=== PATIENT | female | born 1950 | race Caucasian/White ===

== ENCOUNTER → 2016-06-24 | Outpatient (CLI) | payer OTHER ==
[~2016-06-24] MED LIST: ASPEC325 PO; B-COCAP2 PO; CLTP PO; CNC36 PO; CYM60 PO; LRTUNK; OXYSRUNK
--- NOTE | 2016-06-24 14:12 | DIAGNOSTIC IMAGING REPORT ---
MRI OF THE BRAIN WITHOUT CONTRAST CLINICAL HISTORY: Migraine headaches without aura, memory changes, difficulty focusing eyes. COMPARISON STUDY: None. FINDINGS: Sagittal T1, axial diffusion, proton density and T2 weighted axial, coronal FLAIR, and axial T1-weighted images were acquired. No intra or extra-axial mass lesions are visualized Axial diffusion-weighted images reveal no evidence of acute or subacute infarction. There is no evidence of ventricular dilatation. Proton density T2-weighted and FLAIR images reveal a few scattered foci of increased T2 signal within the white matter, likely on a small vessel basis. There are no abnormal flow voids. IMPRESSION: 1. No evidence of acute or subacute infarction 2. No evidence of intracranial mass 3. Minor foci of increased T2 and FLAIR signal within the white matter, likely on a small vessel basis. Electronically signed by: Willie Springer M.D. 06/24/2016 2:11 PM Dictated Date/Time: 06/24/2016 2:08 PM
== END | disposition home or self-care (01) ==
LOC: C.MRI 13:13
PROVIDERS: ATTEND Psychiatry & Neurology Neurology
DX: G43.009 Migraine without aura, not intractable, without status migrainosus (principal); R41.3 Other amnesia; R41.89 Other symptoms and signs involving cognitive functions and awareness

== ENCOUNTER → 2016-11-04 | Outpatient (CLI) | payer OTHER ==
[~2016-11-04] VITALS: Ht 160 cm; Wt 78.5 kg
[2016-11-04 11:32] VITALS: BP 118/74; PULSE 73; Ht 160 cm; Wt 78.5 kg
== END | disposition home or self-care (01) ==
LOC: C.NEUR 10:00
PROVIDERS: ATTEND Internal Medicine Pulmonary Disease
DX: G47.33 Obstructive sleep apnea (adult) (pediatric) (principal); F90.1 Attention-deficit hyperactivity disorder, predominantly hyperactive type; R26.89 Other abnormalities of gait and mobility; R41.3 Other amnesia; F41.3 Other mixed anxiety disorders; Z79.899 Other long term (current) drug therapy

== ENCOUNTER → 2017-03-02 | Outpatient (CLI) | payer OTHER | END | disposition home or self-care (01) | LOC: C.LAB1850 13:49 | PROVIDERS: ATTEND Internal Medicine Pulmonary Disease | DX: G25.81 Restless legs syndrome (principal) ==

== ENCOUNTER 2021-04-08 08:09 | Inpatient (IN) ==
--- NOTE | 2021-02-18 11:37 | PAT Medication Instructions ---
Medication Instructions Date of Service February 18, 2021 Home Medications aspirin 81 mg tablet,delayed release 81 mg PO HS atorvastatin 10 mg tablet 10 mg PO HS calcium carbonate 500 mg-vitamin D3 10 mcg (400 unit) tablet 1 tab PO BID cholecalciferol (vitamin D3) 25 mcg (1,000 unit) capsule 1,000 units PO QAM duloxetine 30 mg capsule,delayed release 30 mg PO HS methylphenidate HCl 54 mg tablet,extended release 24 hr 54 mg PO QAM propranolol 60 mg capsule,24 hr,extended release 60 mg PO QAM vitamin B complex (Super B-50 Complex) 1 cap PO QAM alendronate 70 mg tablet (Fosamax) 70 mg PO WK gabapentin 100 mg capsule 400 mg PO BID lactobacillus combination no.4 3 billion cell capsule (Probiotic) 3,000 mmu cells PO QAM multivitamin 1 tab PO QAM Continue as directed alendronate 70 mg tablet (Fosamax) 70 mg PO WK (do not take morning of surgery) ASK your prescriber and surgeon aspirin 81 mg tablet,delayed release 81 mg PO HS DO NOT take the morning of surgery calcium carbonate 500 mg-vitamin D3 10 mcg (400 unit) tablet 1 tab PO BID cholecalciferol (vitamin D3) 25 mcg (1,000 unit) capsule 1,000 units PO QAM methylphenidate HCl 54 mg tablet,extended release 24 hr 54 mg PO QAM vitamin B complex (Super B-50 Complex) 1 cap PO QAM lactobacillus combination no.4 3 billion cell capsule (Probiotic) 3,000 mmu cells PO QAM multivitamin 1 tab PO QAM Take morning of surgery With a small sip of water, OTHERWISE NOTHING TO EAT OR DRINK AFTER MIDNIGHT: propranolol 60 mg capsule,24 hr,extended release 60 mg PO QAM gabapentin 100 mg capsule 400 mg PO BID Take evening before surgery atorvastatin 10 mg tablet 10 mg PO HS calcium carbonate 500 mg-vitamin D3 10 mcg (400 unit) tablet 1 tab PO BID duloxetine 30 mg capsule,delayed release 30 mg PO HS gabapentin 100 mg capsule 400 mg PO BID Other Notes If you have any questions please call us at [phone] or [phone] or [phone] or [phone]
--- NOTE | 2021-02-19 11:26 | Anesthesiology Consultation ---
Date of Service February 19, 2021 Assessment & Plan (1) Encounter for pre-operative examination: - cardiology clearance with [facility] 02/24/2021. - cardiology office visit 06/25/2020: "...chronic symptoms of atypical chest discomfort. She was last seen by us in 2018. She had a stress echocardiogram which did not reveal significant ischemia. A coronary CT angiogram had revealed coronary calcium score of 14 and less than 25% stenosis of ostial LAD. She is being treated with statin therapy...occasional episodes of retrosternal chest tightness which is transient and may occur even at rest. This chest tightness is not different from the past. She also has occasional shortness of breath with moderate exertion which is stable. She denies palpitation, dizziness or syncope...EKG is within normal limits. Chest discomfort is most likely noncardiac in nature. At this point I have not recommended any further evaluation as her symptoms are chronic and unchanged..." - COVID screening: Per assessment on 02/19/2021: Travel screen negative, no known COVID-19 positive contacts or current COVID-19 related symptoms in past 2 weeks. Patient vaccinated. Surgeon arranging preop COVID testing, scheduled 03/03/2021 [place]. Awaiting results. Chart Review Chart Review: Acceptable Risk for Surgery (pending cardiology clearance) and Patient seen in Pre Admission Testing Teaching & Discussion Pre-Anesthesia Teaching/Discussion Notes: Instructed NPO after midnight before surgery, except medications with 15 cc of water. Medication instructions provided according to the PAT guidelines. History Surgery Operation Date: 03/05/21 12:25 Proposed Procedures p L4-S1 Decompression Fusion, Spinal Cord Monitoring - Oskar Plummer DO Height/Weight Height: 5 ft 3 in Weight: 82.1 kg Allergies Allergy/AdvReac Type Severity Reaction Status Date / Time grass pollen-perennial rye, Allergy Mild "SNEEZING Verified 02/17/21 15:12 standar AND RUNNY NOSE" Dust Allergy Mild "SNEEZING" Uncoded 02/17/21 15:12 Medications Home Medications Medication Instructions Recorded Confirmed Last Taken aspirin 81 mg tablet,delayed 81 mg PO HS tab 10/25/18 02/17/21 11/05/19 release atorvastatin 10 mg tablet 10 mg PO HS tab 10/25/18 02/17/21 11/05/19 calcium carbonate 500 mg-vitamin 1 tab PO BID tab 10/25/18 02/17/21 11/05/19 D3 10 mcg (400 unit) tablet cholecalciferol (vitamin D3) 25 1,000 units PO QAM 10/25/18 02/17/21 11/05/19 mcg (1,000 unit) capsule duloxetine 30 mg capsule,delayed 30 mg PO HS cap 10/25/18 02/17/21 11/05/19 release methylphenidate HCl 54 mg 54 mg PO QAM tab 10/25/18 02/17/21 11/05/19 tablet,extended release 24 hr propranolol 60 mg capsule,24 60 mg PO QAM #30 cap 10/25/18 02/17/21 11/05/19 hr,extended release vitamin B complex (Super B-50 1 cap PO QAM 10/25/18 02/17/21 11/05/19 Complex) alendronate 70 mg tablet (Fosamax) 70 mg PO WK 10/15/19 02/17/21 10/14/19 gabapentin 100 mg capsule 400 mg PO BID cap 01/09/21 02/17/21 Unknown lactobacillus combination no.4 3 3,000 mmu cells PO QAM 02/17/21 02/17/21 Unknown billion cell capsule (Probiotic) multivitamin 1 tab PO QAM 02/17/21 02/17/21 Unknown Past Medical History Medical History (Updated 02/19/21 @ 14:34 by Jazmyne Rdz PA-C) ADHD Balance problems chronic, gait instability d/t chronic left leg numbness per pt, denies falls Chronic back pain Chronic headaches reason for propranolol Coronary artery disease nonobstructive per cardio 06/25/2020 note Depression controlled, stable per pt Hyperlipidemia Osteoporosis Sleep apnea cpap-compliant Patient denies h/o stroke, seizures, heart attack, heart failure, DM, HTN, blood clots or blood transfusions. Exercise / Class Metabolic Activity II 4-5 Yardwork/Stairs/Walk up hill (SOB with activities-chronic per pt and [facility] cardio records; denies chest discomfort) Past Family History Family History Grandfather (Paternal) Cancer of bone Mother Heart failure Aunt Cancer Father Myocardial infarction Brother Throat cancer Other No family history of adverse response to anesthesia Past Surgical History Surgical History History of appendectomy History of cataract surgery History of colonoscopy History of esophagogastroduodenoscopy (EGD) History of partial knee replacement left History of sinus surgery History of tonsillectomy History of tooth extraction S/P epidural steroid injection Past Anesthesia History No Hx of Anesthesia Complications and No Family Hx of Anesthesia Complications History of PONV No Hx of PONV and No Hx of Motion Sickness Social History Smoking Status: Never smoker Do You Dip or Chew Tobacco: No Hx Alcohol Use: Yes Alcohol type: other alcohol intake frequency: holidays/special occasions only Hx Substance Use: No substance use type: does not use Review of Systems Patient denies chest pain, shortness of breath, dyspnea on exertion, reflux, fever, chills, cough, wheezing, or palpitations. Physical Exam Vital Signs Vitals BP 118/72 P 69 TEMP 98.8 SP02 94% on RA RESP 17 Physical Full cervical extension range of motion without pain Full TMJ range of motion TMD 3.5 finger breaths Mallampati Score 3 Dentition: intact, several missing teeth left lower side, bridge front upper teeth; denies missing, loose or chipped teeth, caps/crowns or implants Lungs: normal respiratory effort. Clear throughout to auscultation, no ad ventitious breath sounds Cardiac: regular rate and rhythm, no murmurs noted Carotid arteries: negative bruit bilat Extremities: trace pitting edema distal lower extremities (nontender, nonerythematous, normal temperature) chronic per pt without change or worsening Lab Results Anesthesia Preop Results Results Anesthesia Widget: WBC 6.65 K/uL (4.8-10.8) 02/19/21 Hgb 12.9 g/dL (12.0-16.0) 02/19/21 Hct 39.8 % (37-47) 02/19/21 Plt 300 K/uL (130-400) 02/19/21 Na 141 mmol/L (136-145) 02/19/21 K 4.7 mmol/L (3.5-5.1) 02/19/21 Cl 106 mmol/L (98-107) 02/19/21 CO2 30 mmol/L (21-32) 02/19/21 BUN 13 mg/dl (7-18) 02/19/21 Creat 0.78 mg/dl (0.6-1.2) 02/19/21 Glucose Level 83 mg/dl (70-99) 02/19/21 PT 9.9 Seconds (9.0-12.0) 02/19/21 PTT 26.1 Seconds (21.0-31.0) 02/19/21 INR 1.0 (0.9-1.1) 02/19/21 Urine Color Dark Yellow 02/19/21 Urine Appearance Clear (Clear) 02/19/21 Urine pH 8.5 (4.5-7.5) H 02/19/21 Urine Specific [place] 1.019 (1.000-1.030) 02/19/21 Urine Protein Negative (Negative) 02/19/21 Urine Glucose (UA) Negative (Negative) 02/19/21 Urine Ketones Negative (Negative) 02/19/21 Urine Blood Negative (Negative) 02/19/21 Urine Nitrite Negative (Negative) 02/19/21 Urine Bilirubin Negative (Negative) 02/19/21 Urine Urobilinogen Negative (Negative) 02/19/21 Urine Leukocyte Esterase Trace (Negative) H 02/19/21 Urine WBC (Auto) 1-5 /hpf (0-5) 02/19/21 Urine RBC (Auto) 0-4 /hpf (0-4) 02/19/21 Urine Hyaline Casts (Auto) 0 /lpf (0-5) 02/19/21 Urine Epithelial Cells (Auto) >30 /lpf (0-5) H 02/19/21 Urine Bacteria (Auto) 1+ (Negative) H 02/19/21 Blood Type O Positive 02/19/21 Antibody Screen NEGATIVE 02/19/21 Lab Comments: Surgeon's office made aware of abnormal UA. Testing Electrocardiogram Date: 06/25/20 Normal sinus rhythm, rate 70 bpm. Chest X-Ray Date: 02/19/21 FINDINGS: Frontal and lateral radiographs of the chest demonstrate the cardiomediastinal silhouette to be within normal limits. The lungs are clear of alveolar opacities. There is no evidence for effusion bilaterally. There is no evidence for vascular congestion. There is no acute osseous pathology. IMPRESSION: No acute cardiopulmonary disease. Stress Test Date: 08/07/17 Exercise Negative for ischemia MPHR 84% EF 66% Normal left ventricular wall motion Mild mitral regurgitation 7 METS per f/u cardiology office note
[~2021-04-08 08:09] MED LIST changes: +ACETAMINOPHEN 500 MG TAB PO SCH; -ASPEC325 PO; -B-COCAP2 PO; -CLTP PO; -CNC36 PO; -CYM60 PO; +CeleBREX 200 MG CAP PO SCH; +GABAPENTIN 300 MG CAP PO SCH; +LR 15ML/HR IV SCH; -LRTUNK; -OXYSRUNK; +ceFAZolin 2000MG 2,000 MG/15 ML SYR IV SCH
[2021-04-08] MEDS ORDERED: fentaNYL citrate 100 MCG/2 ML VIAL IV PRN (08:32)
[2021-04-08] MEDS ORDERED: ePHEDrine sulfate 50 MG/ML AMP IV PRN (08:32)
[2021-04-08] MEDS ORDERED: HYDROmorphone INJ 1 MG/ML SYRINGE IV PRN (08:32)
[2021-04-08] MEDS ORDERED: ATROPINE SULFATE 0.1 MG/ML 10ML SYR IV PRN (08:32)
[2021-04-08] MEDS ORDERED: ONDANSETRON INJ 2 MG/ML 2 ML VIAL IV PRN (08:32)
[2021-04-08] MEDS ORDERED: fentaNYL citrate 100 MCG/2 ML VIAL ONE (08:43)
--- NOTE | 2021-04-08 09:58 | History & Physical Report ---
Date of Service April 08, 2021 Assessment & Plan (1) Neurogenic claudication due to lumbar spinal stenosis: Plan: L4-S1 decompression fusion History of Present Illness Chief Complaint: Back and leg pain Primary Care Provider: Francis Alejandro This is a 71-year-old female who presents with chronic persistent back and leg pain. Failing extensive course of nonoperative care is here for surgical invention. Allergies Allergy/AdvReac Type Severity Reaction Status Date / Time grass pollen-perennial rye, Allergy Mild "SNEEZING Verified 04/08/21 08:36 standar AND RUNNY NOSE" Home Medications Medication Instructions Recorded Confirmed Type aspirin 81 mg tablet,delayed 81 mg PO HS tab 10/25/18 04/08/21 History release atorvastatin 10 mg tablet 10 mg PO HS tab 10/25/18 04/08/21 History calcium carbonate 500 mg-vitamin 1 tab PO BID tab 10/25/18 04/08/21 History D3 10 mcg (400 unit) tablet cholecalciferol (vitamin D3) 25 1,000 units PO QAM 10/25/18 04/08/21 History mcg (1,000 unit) capsule duloxetine 30 mg capsule,delayed 30 mg PO HS cap 10/25/18 04/08/21 History release methylphenidate HCl 54 mg 54 mg PO QAM tab 10/25/18 04/08/21 History tablet,extended release 24 hr propranolol 60 mg capsule,24 60 mg PO QAM #30 cap 10/25/18 04/08/21 History hr,extended release vitamin B complex (Super B-50 1 cap PO QAM 10/25/18 04/08/21 History Complex) alendronate 70 mg tablet (Fosamax) 70 mg PO WK 10/15/19 04/08/21 History gabapentin 100 mg capsule 400 mg PO BID cap 01/09/21 04/08/21 History lactobacillus combination no.4 3 3,000 mmu cells PO QAM 02/17/21 04/08/21 History billion cell capsule (Probiotic) multivitamin 1 tab PO QAM 02/17/21 04/08/21 History Past Med/Surg History Medical History (Updated 04/08/21 @ 09:58 by Oskar Plummer DO) ADHD Balance problems chronic, gait instability d/t chronic left leg numbness per pt, denies falls Chronic back pain Chronic headaches reason for propranolol Coronary artery disease nonobstructive per cardio 06/25/2020 note Depression controlled, stable per pt Hyperlipidemia Osteoporosis Sleep apnea cpap-compliant Surgical History History of appendectomy History of cataract surgery History of colonoscopy History of esophagogastroduodenoscopy (EGD) History of partial knee replacement left History of sinus surgery History of tonsillectomy History of tooth extraction S/P epidural steroid injection Family History Grandfather (Paternal) Cancer of bone Mother Heart failure Aunt Cancer Father Myocardial infarction Brother Throat cancer Other No family history of adverse response to anesthesia Social History Smoking Status: Never smoker Second Hand Exposure: No; Do You Dip or Chew Tobacco: No; Hx Alcohol Use: Yes Alcohol type: other Hx Substance Use: No Preferred Language: Slovak Communication Ability: Effective Cdl B Driver Required: No Beliefs That Will Affect Care: None Current Living Situation: Spouse Feels Safe at Home: Yes Safety Concerns: Feels Safe At This Time Assistive Devices: CPAP and Glasses Assistive Devices Comment: readers Physical Exam Physical Exam: Patient is alert and oriented Heart regular rhythm Lungs clear Results & Data ([facility]) Vital Signs (Past 12 Hours) Vital Signs Temp Pulse Resp BP Pulse Ox 04/08/21 08:30 36.7 C 70 18 133/58 L 99
--- NOTE | 2021-04-08 09:58 | History & Physical Bridge Note ---
Date of Service April 08, 2021 History & Physical Bridge Note I have examined the patient, reviewed the History & Physical and in the interval since the performance of the History & Physical I have noted the following changes of clinical significance: no changes noted
[2021-04-08] MEDS ORDERED: ceFAZolin 330 MG/ML 1 GM VIAL ONE (10:13)
[2021-04-08] MEDS ORDERED: BUPIVACAINE/EPINEPHRINE 0.25% 1:200,000 30 ML VIAL ONE (10:14)
[2021-04-08] MEDS ORDERED: MIDAZOLAM HCL 1 MG/ML 2ML VIAL ONE (10:15)
[2021-04-08] MEDS ORDERED: ONDANSETRON INJ 2 MG/ML 2 ML VIAL ONE (11:19)
[2021-04-08] MEDS ORDERED: PROPOFOL IV EMULSION 10 MG/ML 20 ML VIAL IV ONE (11:19)
[2021-04-08] MEDS ORDERED: LIDOCAINE 2% 2 ML VIAL/AMP(20MG/ML) INFIL ONE (11:19)
[2021-04-08] MEDS ORDERED: DEXAMETHASONE SOD INJ 4 MG/ML VIAL ONE (11:19)
[2021-04-08] MEDS ORDERED: HYDROmorphone INJ 2 MG/ML SYR/VIAL ONE (11:20)
[2021-04-08] MEDS ORDERED: FLOSEAL HEMOSTATIC MATRIX 10ML TOP ONE (11:26)
[2021-04-08] MEDS ORDERED: NEOSTIGMINE METHYLSULFATE 1 MG/ML 10ML VIAL ONE (11:35)
[2021-04-08] MEDS ORDERED: PHENYLEPHRINE HCL 10 MG/ML VIAL ONE (11:35)
[2021-04-08] MEDS ORDERED: GLYCOPYRROLATE 0.2 MG/ML VIAL ONE (11:35)
--- NOTE | 2021-04-08 12:35 | Operative Report ---
Post Operative Report Pre & Post Diagnosis Operation Date: 04/08/21 10:05 Pre-Op Diagnosis: Neurogenic claudication due to lumbar spinal stenosis Spondylolisthesis L4-L5 Post-Op Diagnosis: Same I identified the patient and participated in the time-out.: Yes Procedure Operation Date: 04/08/21 10:05 Actual Procedures #1 lumbar compression with bilateral medial facetectomies and foraminotomies L3- L4, L4-5 and L5-S1. #2 posterior spinal fusion L4-5 L5-S1. #3 placement posterior instrumentation L4-5 L5-S1. #4 interbody fusion L4-L5 per #5 placement of titanium cage 12 x 22 mm at L4-5 per #6 placement locally harvested morselized autograft in the posterior gutters. #7 placement of infuse collagen sponge, master graft in the posterior lateral gutters and I factor interbody space. Surgeon Oskar Plummer, Accounts Payable Professional Sushila Miller Estimated Blood Loss 200 Findings See Below Patient is 5 foot 3 inches tall weighing over 81 kg with a BMI in excess of 32. The patient's body habitus did contribute to significant technical difficulty requiring her deepest retractors longus instruments in order to perform her procedure. This at least 50% increase to the operative time. Specimens None Indications This is a 71-year-old female presents with bulge diagnosis after failing course of nonoperative care is here for the above-mentioned procedure. Description of Procedure Patient was met with identified informed consent obtained. Patient was then taken to the operative suite underwent ablation placed in a prone position the Aubrey table atop Abdullahi frame. All bony prominences well-padded eyes inspected to ensure no external pressure placed upon the. This point the lumbar spine was prepped and draped in a normal sterile fashion. Sharp dissection with the assistance of Bovie cautery was performed down to and exposing the lamina transverse processes of L for L5 and the sacral ala bilaterally. From a caudal cephalad fashion complete laminectomy of L5 L4 partial laminectomy L3 was performed including bilateral medial facetectomies and foraminotomies addressing severe spinal stenosis. Pedicle screws were then placed in L for L5 and S1 levels bilaterally with assistance of fluoroscopy and appropriately sized diana placed. By way of a transforaminal approach on the left pleat discectomy of L4- L5 was performed endplates curetted to subcortical bleeding bone and a 12 x 22 mm titanium cage filled with I factor tapped in position. The rods were then locked into final position bilaterally. The transverse processes of L4-L5 and sacral ala burred to subcortical bleeding bone. Infuse collagen sponge master graft local autograft was placed in the posterior gutters. 15 round BERNARDINO drain inserted. The incision was then closed with 1 Vicryl in the fascia 2-0 Vicryl subcutaneously and 4 Monocryl for final skin closure. Steri-Strip sterile dressing was placed. Patient will continue PACU stable condition. Please note spinal cord monitoring was utilized at the procedure no changes noted. Lastly Sushila Miller was present at the entire surgeon while the patient positioning complex portions of the surgery and final skin closure. I attest to the content of the Intraoperative Record and any orders documented therein. Any exceptions are noted below.
--- NOTE | 2021-04-08 13:29 | Fluoroscopy Report ---
FL lumbar spine 2-3V HISTORY: 71 years-old Female L4-S1 DECOMPRESSION AND FUSION STATUS post lower lumbar spinal fusion COMPARISON: Chest radiograph 02/19/2021 TECHNIQUE: 2 spot fluoroscopic images of the lumbar spine were obtained utilizing 28.7 seconds fluoro scopy time FINDINGS: Posterior interbody diana and screw fusion hardware noted at L4-S1 with L4-L5 laminectomy. The hardware appears to be intact. IMPRESSION: Fluoroscopic assistance as above. ACT 112: Negative or not required by law. The above report was generated using voice recognition software. It may contain grammatical, syntax o r spelling errors. Electronically signed by: Bobby Leon M.D. 04/08/2021 1:27 PM
[2021-04-08] MEDS ORDERED: traMADol HCL 50 MG TABLET PO PRN ×2 (13:35)
[2021-04-08] MEDS ORDERED: FAMOTIDINE 20 MG TAB PO PRN (13:35)
[2021-04-08] MEDS ORDERED: DO NOT ADMINISTER FLU VACCINE PRN (13:35)
[2021-04-08] MEDS ORDERED: oxyCODONE HCL IR 5 MG TAB (IMMEDIATE RELEASE) PO PRN ×2 (13:35)
[2021-04-08] MEDS ORDERED: HYDROmorphone INJ 0.5 MG/0.5 ML SYR IV PRN ×2 (13:35)
[2021-04-08] MEDS ORDERED: diphenhydrAMINE Capsule 25 MG CAP PO PRN (13:35)
[2021-04-08] MEDS ORDERED: ALUMINUM/MAGNESIUM SUSP 30 ML UDC PO PRN (13:35)
[2021-04-08] MEDS ORDERED: ACETAMINOPHEN 1,000 MG/100 ML VIAL IV PRN (13:35)
[2021-04-08] MEDS ORDERED: DO NOT ADMINISTER PNEUMOCOCCAL VACCINE PRN (13:35)
[2021-04-08] MEDS ORDERED: LARYING-O-JET KIT (LTA) ONE (13:39)
[2021-04-08] MEDS ORDERED: GABAPENTIN 100 MG CAP PO PRN (13:49)
--- NOTE | 2021-04-08 14:03 | Consultation ---
Date of Consultation April 08, 2021 Assessment & Plan (1) Status post lumbar surgery: Post op day#0 S/P L3-S1 decompression and L4-S1 fusion by Dr Plummer EB#200ml pain management per ortho wound management per ortho PT/OT as appropriate DVT prophylaxis per ortho incentive spirometry monitor H&H for acute blood loss anemia; pre-op Hgb: 12.9 (2) Coronary artery disease: H/O Nonobstructive CAD on CTA of coronary arteries in 2018 Continue aspirin, atorvastatin (3) Hyperlipidemia: Continue atorvastatin (4) Sleep apnea: Continue CPAP (5) Chronic headaches: Continue propranolol (6) Depression: Continue duloxetine (7) ADHD: Continue methylphenidate DVT Prophylaxis SCDs Disposition per primary team Follows with Dr Francis Alejandro in [place] for routine care Pt was seen and care coordinated with Dr Real. See addendum Thank you for this consultation. We will follow the patient with you during their hospital stay. You can reach a member of the [facility] Team 13/09 via [facility] Supervising Physician Co-Signing Physician Notes Patient is a 71-year-old female with history of dyslipidemia, nonobstructive coronary artery disease, obstructive sleep apnea on CPAP, ADD and other medical problems was consulted for postop medical management. Patient had lumbar decompression surgery by Dr. Plummer for neurogenic claudication secondary to lumbar spinal stenosis, spondylolisthesis L4-L5. Patient is drowsy postoperatively. She denies any significant pain at surgical site. Also denies any chest pain, shortness of breath, dizziness, nausea, abdominal pain. On exam patient is obese, no apparent distress, normocephalic atraumatic, lungs are clear to auscultation, normal breath sounds, S1-S2, no murmur, no pedal edema abdomen soft, nontender, normal bowel sounds, back: Surgical site in dressing+ drain, alert, drowsy, oriented, grossly no focal deficits. S/P lumbar decompression surgery POD#0. Pain management, wound care, DVT prophylaxis as per primary team. PT OT evaluation when appropriate. Incentive spirometry. Monitor for postop anemia. Continue bowel regimen to prevent constipation. Continue CPAP at bedtime for sleep apnea. I personally reviewed the record. Patient is interviewed and examined at bedside. Patient's care is coordinated with Cielo Kern PA-C. Please refer to the documentation above for details of patient's presentation and for discussion of other issues. History of Present Illness Requesting Physician: Dr Plummer Reason for Consultation: Post op medical management Attending Physician: Oskar Plummer, History of Present Illness Patient is 71-year-old female with PMH dyslipidemia, history nonobstructive CAD, [place], ADD seen in medical consultation s/p lumbar decompression and fusion today by Dr. Plummer. Postop patient reports feeling tired. Denies pain or paresthesias, SOB, CP, nausea or vomiting. Denies fever/chills, AVERY, dizziness, cough, sore throat, abdominal pain, extremity weakness, extremity edema, rashes, urinary symptoms. Allergies Allergy/AdvReac Type Severity Reaction Status Date / Time grass pollen-perennial rye, Allergy Mild "SNEEZING Verified 04/08/21 08:36 standar AND RUNNY NOSE" Home Medications Medication Instructions Recorded Confirmed Type aspirin 81 mg tablet,delayed 81 mg PO HS tab 10/25/18 04/08/21 History release atorvastatin 10 mg tablet 10 mg PO HS tab 10/25/18 04/08/21 History calcium carbonate 500 mg-vitamin 1 tab PO BID tab 10/25/18 04/08/21 History D3 10 mcg (400 unit) tablet cholecalciferol (vitamin D3) 25 1,000 units PO QAM 10/25/18 04/08/21 History mcg (1,000 unit) capsule duloxetine 30 mg capsule,delayed 30 mg PO HS cap 10/25/18 04/08/21 History release methylphenidate HCl 54 mg 54 mg PO QAM tab 10/25/18 04/08/21 History tablet,extended release 24 hr propranolol 60 mg capsule,24 60 mg PO QAM #30 cap 10/25/18 04/08/21 History hr,extended release vitamin B complex (Super B-50 1 cap PO QAM 10/25/18 04/08/21 History Complex) alendronate 70 mg tablet (Fosamax) 70 mg PO WK 10/15/19 04/08/21 History gabapentin 100 mg capsule 400 mg PO BID cap 01/09/21 04/08/21 History lactobacillus combination no.4 3 3,000 mmu cells PO QAM 02/17/21 04/08/21 History billion cell capsule (Probiotic) multivitamin 1 tab PO QAM 02/17/21 04/08/21 History Patient History Medical History (Updated 04/08/21 @ 14:23 by Cielo Kern PA-C) ADHD Balance problems chronic, gait instability d/t chronic left leg numbness per pt, denies falls Chronic back pain Chronic headaches reason for propranolol Coronary artery disease nonobstructive per cardio 06/25/2020 note Depression controlled, stable per pt Hyperlipidemia Osteoporosis Sleep apnea cpap-compliant Surgical History (Updated 04/08/21 @ 14:23 by Cielo Kern PA-C) History of appendectomy History of cataract surgery History of colonoscopy History of esophagogastroduodenoscopy (EGD) History of partial knee replacement left History of sinus surgery History of tonsillectomy History of tooth extraction S/P epidural steroid injection Family History Grandfather (Paternal) Cancer of bone Mother Heart failure Aunt Cancer Father Myocardial infarction Brother Throat cancer Other No family history of adverse response to anesthesia Social History Smoking Status: Never smoker Second Hand Exposure: No; Do You Dip or Chew Tobacco: No; Hx Alcohol Use: Yes Alcohol type: other Hx Substance Use: No Preferred Language: Slovak Communication Ability: Effective Perfect Binder Operator Required: No Beliefs That Will Affect Care: None Current Living Situation: Spouse Feels Safe at Home: Yes Safety Concerns: Feels Safe At This Time Assistive Devices: CPAP and Glasses Assistive Devices Comment: readers Review of Systems Review of Systems: All systems reviewed & are unremarkable except as noted in HPI & below Physical Exam Physical Exam: General: no distress, WDWN Head: normocephalic, atraumatic Eyes: conjunctiva non-injected, anicteric ENT: normal inspection external ears, nose, mucous membranes moist Neck: supple, trachea midline Lungs: clear, no respiratory distress, no wheezing/rhonchi/rales CV: RRR, no murmur, no pretibial edema Abd: normal BS, soft, non-tender Ext: no cyanosis, no calf tenderness, pedal pushes pulls intact bilaterally Neuro: Alert but groggy, oriented x 3, no focal deficits noted, normal affect Skin: warm, dry Results & Data ([facility]) Vital Signs (Past 12 Hours) Vital Signs Temp Pulse Pulse Resp BP BP Pulse Ox 04/08/21 13:30 36.3 C L 63 17 131/61 92 04/08/21 13:20 36.6 C 65 18 114/50 L 93 04/08/21 13:10 72 19 131/61 90 04/08/21 13:00 80 12 144/73 H 97 04/08/21 12:51 36.4 C L 95 H 16 148/73 H 98 04/08/21 08:30 36.7 C 70 18 133/58 L 99
--- NOTE | 2021-04-08 14:22 | Anesthesiology Progress Note ---
Date of Service April 08, 2021 Anesthesia Post Procedure Vital Signs Vital Signs: Temp Pulse Pulse Resp BP BP Pulse Ox 04/08/21 14:00 36.3 C L 57 L 17 109/67 04/08/21 13:30 36.3 C L 63 17 131/61 92 04/08/21 13:20 36.6 C 65 18 114/50 L 93 04/08/21 13:10 72 19 131/61 90 04/08/21 13:00 80 12 144/73 H 97 04/08/21 12:51 36.4 C L 95 H 16 148/73 H 98 04/08/21 08:30 36.7 C 70 18 133/58 L 99 Pain Intensity Lower Back: Pain Intensity: 1 Transfer of Care Handoff Completed per policy Notes Mental Status: alert / awake / arousable and participated in evaluation Patient Amnestic to Procedure: Yes Nausea / Vomiting: adequately controlled Pain: adequately controlled Airway Patency, RR, SpO2: stable & adequate BP & HR: stable & adequate Hydration State: stable & adequate Anesthetic Complications: no major complications apparent and Pt Satisfied with anesthetic care
[2021-04-08] MEDS: METHYLPHENIDATE SCH (15:40)
--- NOTE | 2021-04-08 17:39 | Anesthesiology Progress Note ---
Date of Service April 08, 2021 Anesthesia Post Procedure Vital Signs Vital Signs: Temp Pulse Pulse Resp BP BP Pulse Ox 04/08/21 16:34 36.3 C L 65 16 107/74 100 04/08/21 15:40 36.3 C L 56 L 17 101/57 L 100 04/08/21 14:30 36.3 C L 58 L 105/63 96 04/08/21 14:00 36.3 C L 57 L 17 109/67 04/08/21 13:30 36.3 C L 63 17 131/61 92 04/08/21 13:20 36.6 C 65 18 114/50 L 93 04/08/21 13:10 72 19 131/61 90 04/08/21 13:00 80 12 144/73 H 97 04/08/21 12:51 36.4 C L 95 H 16 148/73 H 98 04/08/21 08:30 36.7 C 70 18 133/58 L 99 Pain Intensity Lower Back: Pain Intensity: 1 Transfer of Care Handoff Completed per policy Notes Mental Status: alert / awake / arousable Patient Amnestic to Procedure: Yes Nausea / Vomiting: adequately controlled Pain: adequately controlled Airway Patency, RR, SpO2: stable & adequate BP & HR: stable & adequate Hydration State: stable & adequate Anesthetic Complications: no major complications apparent
[2021-04-08] MEDS: ASPIRIN 81 MG ECTAB PO SCH (20:46)
[2021-04-08] MEDS: GABAPENTIN 400 MG CAP PO SCH (20:46)
[2021-04-08] MEDS: ATORVASTATIN 10 MG TAB PO SCH (20:46)
[2021-04-08] MEDS: CALCIUM 600MG + VIT D 400 IU TAB PO SCH (23:03)
[2021-04-08] MEDS: DULoxetine HCL 30 MG CAP PO SCH (23:03)
[2021-04-09] MEDS: METHYLPHENIDATE SCH ×3 (00:03→16:04)
[2021-04-09 07:58] LABS: Basophils # (auto) 0.02 K/uL (0-0.2); Basophils % (auto) 0.1 %; Eosinophils # (auto) 0.01 K/uL (0-0.5); Eosinophils % (auto) 0.1 %; Hematocrit (blood only) 32.2 % (37-47); Hemoglobin 10.5 g/dL (12.0-16.0); Immature Granulocytes # (auto) 0.05 K/uL (0.00-0.02); Immature Granulocytes % (auto) 0.3 %; Lymphocytes # (auto) 1.44 K/uL (1.2-3.4); Mean Corpuscular Hemoglobin 29.4 pg (25-34); Mean Corpuscular Hgb Conc 32.6 g/dL (32-36); Mean Corpuscular Volume 90.2 fL (80-100); Mean Platelet Volume 10.7 fL (7.4-10.4); Monocytes # (auto) 1.32 K/uL (0.11-0.59); Monocytes % (auto) 8.3 %; Neutrophils % (auto) 82.2 %; Platelet Count 253 K/uL (130-400); RDW Coefficient of Variation 13.3 % (11.5-14.5); RDW Standard Deviation 43.7 fL (36.4-46.3); Red Blood Count 3.57 M/uL (4.2-5.4); White Blood Count 15.94 K/uL (4.8-10.8)
[2021-04-09 08:29] LABS: BUN Creatinine Ratio 22.2 (10-20); Calcium 8.8 mg/dl (8.5-10.1); Creatinine Clr Calc Pharmacy 86.2 ml/min; Est GFR (African American) 104.6 ml/min; Est GFR (Non-African American) 90.2 ml/min
[2021-04-09] MEDS: ADVANCED PROBIOTIC 1250 MG CAPSULE PO SCH (08:29)
[2021-04-09] MEDS: CALCIUM 600MG + VIT D 400 IU TAB PO SCH ×2 (08:29→20:22)
[2021-04-09] MEDS: MULTIVITAMIN TAB PO SCH (08:30)
[2021-04-09] MEDS: PROPRANOLOL HCL 60 MG LA CAP PO SCH (08:30)
[2021-04-09] MEDS: VITAMIN B COMPLEX TAB PO SCH (08:30)
[2021-04-09] MEDS: CHOLECALCIFEROL 1,000 UNITS 25 MCG TAB PO SCH (08:31)
[2021-04-09] MEDS: GABAPENTIN 400 MG CAP PO SCH ×2 (08:31→20:23)
[2021-04-09] MEDS: dexAMETHasone 6 MG in SYRINGE 0 ML IV SCH (08:33)
--- NOTE | 2021-04-09 11:04 | Orthopedic Progress Note ---
Date of Service April 09, 2021 Assessment & Plan (1) Neurogenic claudication due to lumbar spinal stenosis: Plan: This time continue physical therapy monitor BERNARDINO operatively discharge home in next few days. Admission and Anticipated Discharge Date Admission Date: April 08, 2021 Subjective Back pain controlled leg pain markedly improved Physical Exam Physical Exam: Patient is ambulating about the room. Excellent posture. Good strength testing. Results & Data ([facility]) Vital Signs (Past 12 Hours) Vital Signs Temp Pulse Resp BP Pulse Ox 04/09/21 08:27 82 111/66 04/09/21 07:45 36.4 C L 76 16 112/68 100 04/09/21 03:44 36.6 C 87 18 112/67 98 04/08/21 23:05 36.6 C 89 19 96
--- NOTE | 2021-04-09 13:00 | Hospitalist Progress Note ---
Date of Service April 09, 2021 Assessment & Plan (1) Status post lumbar surgery: Plan: Post op day#1 s/p L3-S1 decompression and L4-S1 fusion by Dr. Plummer Per ortho for pain control, wound care, anticoagulation and activities Monitor H&H, continue incentive spirometry, PT/OT when appropriate EBL#200ml. Hgb 10.5 (pre-op hgb 12.9) - possible acute blood loss anemia in setting of recent surgery and dilution. Continue to monitor with daily CBC (2) Coronary artery disease: Plan: H/O Nonobstructive CAD on CTA of coronary arteries in 2018 Continue aspirin, atorvastatin (3) Hyperlipidemia: Plan: Continue atorvastatin (4) Sleep apnea: Plan: Continue CPAP (5) Chronic headaches: Plan: Continue propranolol (6) Depression: Plan: Continue duloxetine (7) ADHD: Plan: Continue methylphenidate DVT Prophylaxis SCDs Disposition per primary team Follows with Dr Francis Alejandro in [place] for routine care Thank you for this consultation. We will follow the patient with you during their hospital stay. You [facility] via [place] Admission and Anticipated Discharge Date Admission Date: April 08, 2021 Supervising Physician Co-Signing Physician Notes 71-year-old woman with nonobstructive CAD, [place] on CPAP, ADD who had lumbar decompression surgery for neurogenic claudication due to lumbar spinal stenosis. Patient seen and examined. Reports some discomfort at surgical site. Yet to move bowels. Physical exam only remarkable for clean dressing with BERNARDINO drain in situ, Bedoya in situ. Labs notable for hemoglobin of 10.5, WBC of 15.9. Preop Hb was 12.9. However this was from 2 months ago. Hb drop could be possibly from surgical blood loss anemia or dilutional Monitor PT/OT Agree with other plans as detailed by Roxie Wheat PA-C Subjective Seen and examined in 379-1. Feeling well today with minimal surgical site discomfort. Ambulated with PT without issue. No F/C, CP, SOB, N/V, abdominal pain, diarrhea or constipation. Nursing about to remove bedoya catheter. Review of Systems Review of Systems: At least ten systems reviewed and negative except as noted in the HPI. Physical Exam Physical Exam: Gen: WD/WN, NAD, lying in bed, A&Ox3 HEENT: Normocephalic, atraumatic, conjunctivae moist, sclerae anicteric, mucous membranes moist Lung: Clear to Auscultation bilaterally, no wheezes/rales/rhonchi Heart: Regular rate, regular rhythm, no murmurs, rubs, or gallops Abdomen: Soft, NT, ND +BS x 4 Extremities: Spinal dressing c/d/i. BERNARDINO drain visualized. No edema Skin: Warm, no rash Results & Data Results & Data ([facility]) Vital Signs (Past 12 Hours) Vital Signs Temp Pulse Resp BP Pulse Ox 04/09/21 12:23 36.6 C 70 16 112/63 96 04/09/21 08:27 82 111/66 04/09/21 07:45 36.4 C L 76 16 112/68 100 04/09/21 03:44 36.6 C 87 18 112/67 98 Laboratory Results Short CBC 04/09/21 Range/Units 06:59 WBC 15.94 H (4.8-10.8) K/uL Hgb 10.5 L (12.0-16.0) g/dL Hct 32.2 L (37-47) % Plt Count 253 (130-400) K/uL BMP 04/09/21 06:59 Sodium 138 Potassium 4.0 Chloride 104 Carbon Dioxide 31 BUN 14 Creatinine 0.63 Glucose 101 H Calcium 8.8 Diagnostic Findings Lumbar Spine X-Ray 04/08/21 10:05 FL lumbar spine 2-3V HISTORY: 71 years-old Female L4-S1 DECOMPRESSION AND FUSION STATUS post lower lumbar spinal fusion COMPARISON: Chest radiograph 02/19/2021 TECHNIQUE: 2 spot fluoroscopic images of the lumbar spine were obtained utilizing 28.7 seconds fluoroscopy time FINDINGS: Posterior interbody diana and screw fusion hardware noted at L4-S1 with L4-L5 laminectomy. The hardware appears to be intact. IMPRESSION: Fluoroscopic assistance as above. ACT 112: Negative or not required by law. The above report was generated using voice recognition software. It may contain grammatical, syntax or spelling errors. Electronically signed by: Bobby Leon M.D. 04/08/2021 1:27 PM
[2021-04-09] MEDS: ASPIRIN 81 MG ECTAB PO SCH (20:22)
[2021-04-09] MEDS: DULoxetine HCL 30 MG CAP PO SCH (20:23)
[2021-04-09] MEDS: ATORVASTATIN 10 MG TAB PO SCH (20:23)
[2021-04-10] MEDS: METHYLPHENIDATE SCH ×4 (00:07→23:12)
[2021-04-10 08:48] LABS: Hematocrit (blood only) 31.5 % (37-47); Hemoglobin 10.3 g/dL (12.0-16.0); Mean Corpuscular Hemoglobin 29.8 pg (25-34); Mean Corpuscular Hgb Conc 32.7 g/dL (32-36); Mean Platelet Volume 10.8 fL (7.4-10.4); Platelet Count 260 K/uL (130-400); RDW Coefficient of Variation 13.7 % (11.5-14.5); RDW Standard Deviation 45.3 fL (36.4-46.3); Red Blood Count 3.46 M/uL (4.2-5.4); White Blood Count 12.86 K/uL (4.8-10.8)
[2021-04-10 09:19] LABS: Calcium 9.1 mg/dl (8.5-10.1); Creatinine Clr Calc Pharmacy 67.9 ml/min; Est GFR (Non-African American) 74.2 ml/min
[2021-04-10] MEDS: dexAMETHasone 6 MG in SYRINGE 0 ML IV SCH (09:21)
[2021-04-10] MEDS: ADVANCED PROBIOTIC 1250 MG CAPSULE PO SCH (09:28)
[2021-04-10] MEDS: CHOLECALCIFEROL 1,000 UNITS 25 MCG TAB PO SCH (09:28)
[2021-04-10] MEDS: VITAMIN B COMPLEX TAB PO SCH (09:28)
[2021-04-10] MEDS: PROPRANOLOL HCL 60 MG LA CAP PO SCH (09:29)
[2021-04-10] MEDS: CALCIUM 600MG + VIT D 400 IU TAB PO SCH ×2 (09:29→20:18)
[2021-04-10] MEDS: MULTIVITAMIN TAB PO SCH (09:29)
[2021-04-10] MEDS: GABAPENTIN 400 MG CAP PO SCH ×2 (09:29→20:18)
--- NOTE | 2021-04-10 15:12 | Hospitalist Progress Note ---
Date of Service April 10, 2021 Assessment & Plan (1) Neurogenic claudication due to lumbar spinal stenosis: (2) Status post lumbar surgery: Plan: Post op day#2 s/p L3-S1 decompression and L4-S1 fusion by Dr. Kavitha COKER#200ml. Hgb 10.3 (pre-op hgb 12.9) - possible acute blood loss anemia in setting of recent surgery and dilution. However, preop Hb was from 2 months ago Hb remains stable yesterday and today Pain controlled Continue PT/OT (3) Coronary artery disease: Plan: H/O Nonobstructive CAD on CTA of coronary arteries in 2018 Continue aspirin, atorvastatin (4) Hyperlipidemia: Plan: Continue atorvastatin (5) Sleep apnea: Plan: Continue CPAP (6) Chronic headaches: Plan: Continue propranolol (7) Depression: Plan: Continue duloxetine (8) ADHD: Plan: Continue methylphenidate DVT Prophylaxis SCDs Disposition per primary team Admission and Anticipated Discharge Date Admission Date: April 08, 2021 Subjective Patient seen and examined Reports surgical site pain is well controlled. Reports some numbness in the foot Yet to move bowel but passing flatus. Has been on deleting well with walker. Denies any fevers, chills, nausea, vomiting Denies chest pain, cough, shortness of breath no palpitations Denies dysuria, frequency or urgency Physical Exam Constitutional: + well hydrated; no acute distress Eyes: PERRL, conjunctivae normal, anicteric sclerae ENMT: external ear and nose normal, oropharynx normal Respiratory: normal respiratory effort, lungs clear to auscultation Cardiovascular: Rate/Rhythm: regular rate and regular rhythm S1 S2 Gastrointestinal (Abdomen): normal bowel sounds, soft, nontender, no hepatosplenomegaly Musculoskeletal: Clean dressing over lower back surgical site with drain in situ Neurologic: PERRL, EOMI, accommodation nl, no face palsy, no dysarthria Psychiatric: A+Ox3, euthymic affect Results & Data Results & Data ([facility]) Vital Signs (Past 12 Hours) Vital Signs Temp Pulse Resp BP Pulse Ox 04/10/21 07:18 36.4 C L 72 12 115/71 93 Laboratory Results Abnormal lab results 04/10/21 04/10/21 Range/Units 08:22 08:22 WBC 12.86 H (4.8-10.8) K/uL RBC 3.46 L (4.2-5.4) M/uL Hgb 10.3 L (12.0-16.0) g/dL Hct 31.5 L (37-47) % MPV 10.8 H (7.4-10.4) fL BUN 24 H (6-23) mg/dl BUN/Creatinine Ratio 30.0 H (10-20)
[2021-04-10] MEDS: DULoxetine HCL 30 MG CAP PO SCH (20:18)
[2021-04-10] MEDS: ATORVASTATIN 10 MG TAB PO SCH (20:19)
[2021-04-10] MEDS: ASPIRIN 81 MG ECTAB PO SCH (20:19)
--- NOTE | 2021-04-11 07:57 | Discharge Summary ---
Date of Service April 11, 2021 Admission HPI Per Admitting Provider This is a 71-year-old female who presents with chronic persistent back and leg pain. Failing extensive course of nonoperative care is here for surgical invention. Discharge Data Consultations 04/08/21 13:35 Consult Hospitalist Routine Procedures Performed Operation Date: 04/08/21 10:05 Actual Procedures p L4-S1 Decompression Fusion, Spinal Cord Monitoring(Not Applicable) - Oskar Plummer, Hospital Course (1) Neurogenic claudication due to lumbar spinal stenosis: Patient is a pleasant 71-year-old female with history physical examination radiographic images consistent with the above-mentioned diagnosis. For this reason she is brought to the operating room on 04/08/2021 and undergone the above-mentioned procedure. This performed by Dr. Plummer under general anesthesia. She left the room with BERNARDINO drain and Gupta in place and transferred to PACU in stable condition. She was then transferred to the orthopedic floor. She was placed on GI DVT prophylaxis. Throughout her hospital course her calves remained supple nontender her back remains nontender. On postop day #3 she is deemed safe for home discharge. Her discharge instructions were reviewed. She is to follow-up in the office approximately 2 weeks or sooner if she developed any increased pain, fever, chills or increased drainage from her incision.
[2021-04-11] MEDS: GABAPENTIN 400 MG CAP PO SCH (09:00)
[2021-04-11] MEDS: ADVANCED PROBIOTIC 1250 MG CAPSULE PO SCH (09:00)
[2021-04-11] MEDS: VITAMIN B COMPLEX TAB PO SCH (09:01)
[2021-04-11] MEDS: MULTIVITAMIN TAB PO SCH (09:01)
[2021-04-11] MEDS: CHOLECALCIFEROL 1,000 UNITS 25 MCG TAB PO SCH (09:01)
[2021-04-11] MEDS: PROPRANOLOL HCL 60 MG LA CAP PO SCH (09:01)
[2021-04-11] MEDS: CALCIUM 600MG + VIT D 400 IU TAB PO SCH (09:02)
[2021-04-11] MEDS: dexAMETHasone 6 MG in SYRINGE 0 ML IV SCH (09:03)
[2021-04-11] MEDS: METHYLPHENIDATE SCH (09:03)
[2021-04-12] MEDS ORDERED: ALENDRONATE SODIUM 70 MG TAB PO SCH (06:30)
== END 2021-04-11 11:00 | disposition home or self-care (01) | DRG 454 ==
LOC: ASU 08:09 → 3N 12:40

== ENCOUNTER 2023-06-08 05:07 | Observation (INO) ==
--- NOTE | 2023-04-27 13:57 | PAT Medication Instructions ---
Medication Instructions Date of Service April 27, 2023 Home Medications atorvastatin 10 mg tablet 10 mg PO HS calcium carbonate 500 mg-vitamin D3 10 mcg (400 unit) tablet 1 tab PO BID cholecalciferol (vitamin D3) 25 mcg (1,000 unit) capsule 1,000 units PO QAM duloxetine 30 mg capsule,delayed release 30 mg PO HS methylphenidate HCl 54 mg tablet,extended release 24 hr 54 mg PO QAM propranolol 60 mg capsule,24 hr,extended release 40 mg PO BID vitamin B complex (Super B-50 Complex capsule) 1 cap PO QAM alendronate 70 mg tablet (Fosamax) 70 mg PO WK gabapentin 100 mg capsule 400 mg PO BID multivitamin 1 tab PO QAM Continue as directed alendronate 70 mg tablet (Fosamax) 70 mg PO WK (just do not take on morning of surgery) DO NOT take the morning of surgery calcium carbonate 500 mg-vitamin D3 10 mcg (400 unit) tablet 1 tab PO BID cholecalciferol (vitamin D3) 25 mcg (1,000 unit) capsule 1,000 units PO QAM methylphenidate HCl 54 mg tablet,extended release 24 hr 54 mg PO QAM vitamin B complex (Super B-50 Complex capsule) 1 cap PO QAM multivitamin 1 tab PO QAM Take morning of surgery With a small sip of water, OTHERWISE NOTHING TO EAT OR DRINK AFTER MIDNIGHT: propranolol 60 mg capsule,24 hr,extended release 40 mg PO BID gabapentin 100 mg capsule 400 mg PO BID Take evening before surgery atorvastatin 10 mg tablet 10 mg PO HS calcium carbonate 500 mg-vitamin D3 10 mcg (400 unit) tablet 1 tab PO BID duloxetine 30 mg capsule,delayed release 30 mg PO HS propranolol 60 mg capsule,24 hr,extended release 40 mg PO BID gabapentin 100 mg capsule 400 mg PO BID Other Notes If you have any questions please call us at [phone] or [phone] or [phone] or [phone]
--- NOTE | 2023-05-04 10:13 | Anesthesiology Consultation ---
Date of Service May 04, 2023 Assessment & Plan (1) Encounter for pre-operative examination: Plan - awaiting H cardiology clearance. Optimization form to be faxed. - Patient states Holter monitor is scheduled to be returned 1-2 days before surgery as currently scheduled 06/01/23. Case discussed with Dr. Parada who advised surgery needs postponed to allow time for review of Holter monitor and cardiology determination if further evaluation is needed/clearance. Surgeon's office made aware, Glenda states patient is now in their office today and she will discuss need for surgery date change which will be to 06/08/23..." - cardiology office visit 04/04/23 PSH: "...lightheadedness and palpitations...HR 180...10 day monitor placed that revealed runs of SVT...symptomatic episodes were not captured during the 10 day monitor...echo...30 day monitor...If no symptomatic arrhythmia is captured with a 30 day monitor, we discussed with the patient the possibility of ILD implantation in the future..." Chart Review Chart Review: Pending: Refer to Additional Notes / Consult section and Patient seen in Pre Admission Testing Teaching & Discussion Pre-Anesthesia Teaching/Discussion Notes: Instructed NPO after midnight before surgery, except medications with 15 cc of water. Medication instructions provided according to the PAT guidelines. History Surgery Operation Date: 06/08/23 11:55 Proposed Procedures p Right Total Knee Arthroplasty - Jorge Monet MD Height/Weight Height: 5 ft 3 in Weight: 83.4 kg Allergies Allergy/AdvReac Type Severity Reaction Status Date / Time grass pollen-perennial rye, Allergy Mild "SNEEZING Verified 04/27/23 10:12 standar AND RUNNY NOSE" Medications Home Medications Medication Instructions Recorded Confirmed Last Taken atorvastatin 10 mg tablet 10 mg PO HS 10/25/18 04/27/23 04/07/21 22:00 calcium carbonate 500 mg-vitamin 1 tab PO BID 10/25/18 04/27/23 04/07/21 22:00 D3 10 mcg (400 unit) tablet cholecalciferol (vitamin D3) 25 1,000 units PO QAM 10/25/18 04/27/23 04/07/21 08:00 mcg (1,000 unit) capsule duloxetine 30 mg capsule,delayed 30 mg PO HS 10/25/18 04/27/23 04/07/21 22:00 release methylphenidate HCl 54 mg 54 mg PO QAM 10/25/18 04/27/23 04/07/21 08:00 tablet,extended release 24 hr propranolol 60 mg capsule,24 40 mg PO BID #30 caps 10/25/18 04/27/23 04/08/21 05:30 hr,extended release vitamin B complex (Super B-50 1 cap PO QAM 10/25/18 04/27/23 04/07/21 08:00 Complex capsule) alendronate 70 mg tablet (Fosamax) 70 mg PO WK 10/15/19 04/27/23 03/30/21 gabapentin 100 mg capsule 400 mg PO BID 01/09/21 04/27/23 04/07/21 22:00 multivitamin 1 tab PO QAM 02/17/21 04/27/23 04/07/21 08:00 Past Medical History Medical History (Updated 05/04/23 @ 11:52 by Jazmyne Rdz PA-C) ADHD Balance problems chronic, gait instability d/t chronic left leg numbness per pt, occasional falls-last fall 1 month ago fell off step stool when cleaning refrigerator- denies hitting head or syncope. Coronary artery disease nonobstructive per cardio 06/25/2020 note Depression History of chronic back pain Hyperlipidemia Osteoporosis Sleep apnea "mild" cpap-compliant SVT (supraventricular tachycardia) (~12/2022) pt. reports hr 180's, saw PCP > increased propranolol, home monitor x 2 weeks, saw cardio at [place] Feb 2023, having echo / [facility]: notes associated chest tightness and mild SOB-denies current symptoms in clinic or change/worsening since seeing cardiology Patient was instructed to call 911 if change or worsened symptoms. Patient denies h/o stroke, seizures, heart attack, heart failure, DM, HTN, blood clots/DVTs or blood transfusions. Exercise / Class Metabolic Activity III < 4 Walking/Shop/Light housework (SOB with usual activities, chest tightness with SVT runs-denies symptoms in clinic or change/worsening) Past Family History Family History Grandfather (Paternal) Cancer of bone Mother Heart failure Aunt Cancer Father Myocardial infarction Brother Throat cancer Other No family history of adverse response to anesthesia Past Surgical History Surgical History History of appendectomy History of colonoscopy History of esophagogastroduodenoscopy (EGD) History of lumbar fusion (~03/2021) L4-S1 History of partial knee replacement left History of sinus surgery History of tonsillectomy History of tooth extraction Hx of bilateral cataract extraction S/P epidural steroid injection Past Anesthesia History No Hx of Anesthesia Complications and No Family Hx of Anesthesia Complications History of PONV No Hx of PONV and No Hx of Motion Sickness Social History Smoking Status: Never smoker Do You Dip or Chew Tobacco: No Hx Alcohol Use: Yes Alcohol type: other alcohol intake frequency: holidays/special occasions only Hx Substance Use: No substance use type: does not use Review of Systems Patient denies reflux, fever, chills, cough, wheezing, dizziness, lightheadedness, or palpitations. Physical Exam Vital Signs Vitals BP 116/76 P 70 TEMP 98.3 SP02 98% on RA RESP 18 Physical Patient resting comfortably in chair in no acute distress, alert and oriented, responding appropriately throughout visit Full cervical extension range of motion without pain TMD 3.5 finger breadths Mallampati Score 2 Dentition: two permanent bridges; denies chipped or loose teeth, caps/crowns, or implants Lungs: normal respiratory effort. Good air movement, clear throughout to auscultation, no adventitious breath sounds Cardiac: regular rate and rhythm, no murmurs noted Carotid arteries: negative bruit bilat Lab Results Anesthesia Preop Results Results Anesthesia Widget: WBC 7.00 K/ul (4.8-10.8) 05/04/23 Hgb 12.9 g/dl (12.0-16.0) 05/04/23 Hct 39.7 % (37.0-47.0) 05/04/23 Plt 272 K/uL (130-400) 05/04/23 Na 140 mmol/L (136-145) 05/04/23 K 4.4 mmol/L (3.5-5.1) 05/04/23 Cl 104 mmol/L (98-107) 05/04/23 CO2 29 mmol/L (21-32) 05/04/23 BUN 20 mg/dl (6-23) 05/04/23 Creat 0.76 mg/dl (0.6-1.2) 05/04/23 Glucose Level 70 mg/dl (70-99(Fasting)) 05/04/23 PT 10.2 Seconds (9.0-12.0) 05/04/23 PTT 27 Seconds (21-31) 05/04/23 INR 0.9 (0.9-1.1) 05/04/23 Urine Color Dark Yellow 05/04/23 Urine Appearance Clear (Clear) 05/04/23 Urine pH 6.5 (4.5-7.5) 05/04/23 Urine Specific [place] 1.019 (1.000-1.030) 05/04/23 Urine Protein Negative (Negative) 05/04/23 Urine Glucose (UA) Negative (Negative) 05/04/23 Urine Ketones Negative (Negative) 05/04/23 Urine Blood Negative (Negative) 05/04/23 Urine Nitrite Positive (Negative) A 05/04/23 Urine Bilirubin Negative (Negative) 05/04/23 Urine Urobilinogen Negative (Negative) 05/04/23 Urine Leukocyte Esterase 2+ (Negative) H 05/04/23 Urine WBC (Auto) 10-30 /hpf (0-5) H 05/04/23 Urine RBC (Auto) 0-4 /hpf (0-4) 05/04/23 Urine Hyaline Casts (Auto) 1-5 /lpf (0-5) 05/04/23 Urine Epithelial Cells (Auto) >30 /lpf (0-5) H 05/04/23 Urine Bacteria (Auto) 4+ (Negative) H 05/04/23 Blood Type O Positive 05/04/23 Antibody Screen NEGATIVE 05/04/23 Testing Laboratory Results Surgeon's office notified of abnormal UA. Electrocardiogram Date: 04/04/23 NSR, rate 71 bpm Chest X-Ray Date: 05/04/23 No acute chest disease. Echocardiogram Date: 04/28/23 EF 60-65% No LV regional wall motion abnormalities No LVH Mild mitral regurgitation Mild tricuspid regurgitation Stress Test Date: 07/28/17 Exercise MPHR 84% Negative for ischemia EF 66% Normal LV wall motion Mild mitral regurgitation
--- NOTE | 2023-05-20 19:53 | History & Physical Report ---
Date of Service May 20, 2023 Assessment & Plan (1) Osteoarthritis of right knee: Plan: End-stage right knee osteoarthritis medial compartment and patellofemoral joint. Suboptimal result with medial uni- compartment left knee replacement. Proceed with right total knee replacement. Typical risks and benefits discussed at length. Osteoarthritis type: primary Qualified Code(s): M17.11 - Unilateral primary osteoarthritis, right knee History of Present Illness Chief Complaint: Bilateral knee pain right greater than left Primary Care Provider: Francis Alejandro 73-year-old female with bilateral knee pain right greater than left. Failed conservative management right knee. Left knee has had a unicompartmental knee replacement but has had progressive pain and instability of the left knee. Patient denies headaches, sweats, fevers, chills, double vision, blurred vision, cough, sore throat, dysphagia, chest pain, sob at rest, wheezing, n/v/d/c, numbness, tingling, fatigue, urinary symptoms, mood disorders. ROS positive for irregular heartbeat, sleep apnea, shortness of breath if runs walks uphill or climbs a flight of stairs has some neck and low back pain issues. Allergies Allergy/AdvReac Type Severity Reaction Status Date / Time grass pollen-perennial rye, Allergy Mild "SNEEZING Verified 04/27/23 10:12 standar AND RUNNY NOSE" Home Medications Medication Instructions Recorded Confirmed Type atorvastatin 10 mg tablet 10 mg PO HS 10/25/18 04/27/23 History calcium carbonate 500 mg-vitamin 1 tab PO BID 10/25/18 04/27/23 History D3 10 mcg (400 unit) tablet cholecalciferol (vitamin D3) 25 1,000 units PO QAM 10/25/18 04/27/23 History mcg (1,000 unit) capsule duloxetine 30 mg capsule,delayed 30 mg PO HS 10/25/18 04/27/23 History release methylphenidate HCl 54 mg 54 mg PO QAM 10/25/18 04/27/23 History tablet,extended release 24 hr propranolol 60 mg capsule,24 40 mg PO BID #30 caps 10/25/18 04/27/23 History hr,extended release vitamin B complex (Super B-50 1 cap PO QAM 10/25/18 04/27/23 History Complex capsule) alendronate 70 mg tablet (Fosamax) 70 mg PO WK 10/15/19 04/27/23 History gabapentin 100 mg capsule 400 mg PO BID 01/09/21 04/27/23 History multivitamin 1 tab PO QAM 02/17/21 04/27/23 History Past Med/Surg History Medical History (Updated 05/20/23 @ 20:00 by Jorge Monet MD) History of chronic back pain Depression SVT (supraventricular tachycardia) (~12/2022) pt. reports hr 180's, saw PCP > increased propranolol, home monitor x 2 weeks, saw cardio at [place] Feb 2023, having echo 04/27 [facility]: notes associated chest tightness and mild SOB-denies current symptoms in clinic or change/worsening since seeing cardiology Balance problems chronic, gait instability d/t chronic left leg numbness per pt, occasional falls-last fall 1 month ago fell off step stool when cleaning refrigerator- denies hitting head or syncope. Coronary artery disease nonobstructive per cardio 06/25/2020 note ADHD Osteoporosis Hyperlipidemia Sleep apnea "mild" cpap-compliant Surgical History Hx of bilateral cataract extraction History of lumbar fusion (~03/2021) L4-S1 History of partial knee replacement left S/P epidural steroid injection History of colonoscopy History of esophagogastroduodenoscopy (EGD) History of tooth extraction History of tonsillectomy History of sinus surgery History of appendectomy Family History Grandfather (Paternal) Cancer of bone Mother Heart failure Aunt Cancer Father Myocardial infarction Brother Throat cancer Other No family history of adverse response to anesthesia Social History Smoking Status: Never smoker Second Hand Exposure: No; Do You Dip or Chew Tobacco: No; Tobacco Cessation Education Requested by Patient: No Hx Alcohol Use: Yes Alcohol type: other Hx Substance Use: No Preferred Language: Jordanian Communication Ability: Effective Shower Screen Installer Required: No Beliefs That Will Affect Care: None marital status: Current Living Situation: Spouse Other Information That Helps Us Care for You: No Feels Safe at Home: Yes Safety Concerns: Feels Safe At This Time Assistive Devices: CPAP and Glasses Review of Systems All systems reviewed & are unremarkable except as noted in HPI & below Physical Exam Constitutional: WD/WN, vitals as above Respiratory: normal respiratory effort; no respiratory distress Cardiovascular: Rate/Rhythm: regular rate and regular rhythm Musculoskeletal: Right knee varus alignment 0 to 125 degrees range of motion mild effusion no instability active painful range of motion. Left knee 0 to 130 degrees range of motion ligamentous laxity to valgus stress mild varus stress moderate mild swelling healed surgical scars varus knee alignment. Skin: no rashes, warm and dry Neurologic: normal touch/pain/proprioception Psychiatric: A+Ox3, euthymic affect Results & Data Diagnostic Findings Right knee medial compartment and patellofemoral osteoarthritis with [id number] medial compartment subchondral sclerosis and osteophytes. Left knee with malaligned tibial component of unicompartmental knee replacement no loosening with some varus alignment of the left knee and some osteoarthritic changes in the lateral compartment and patellofemoral joint.
[2023-06-08] MEDS: LR 60ML/HR IV SCH (06:04)
[2023-06-08] MEDS: GABAPENTIN 300 MG CAP PO SCH (06:04)
[2023-06-08] MEDS: LR 500ML BOLUS, THEN 15ML/HR IV SCH (06:07)
[2023-06-08] MEDS: METOCLOPRAMIDE HCL 10 MG TABLET PO SCH (06:10)
[2023-06-08] MEDS: FAMOTIDINE 20 MG TAB PO SCH (06:10)
[2023-06-08] MEDS: ACETAMINOPHEN 500 MG TAB PO SCH ×2 (06:10→15:03)
[2023-06-08] MEDS ORDERED: ROPIVACAINE 0.5% 5 MG/ML 30 ML VIAL ONE (06:11)
[2023-06-08] MEDS: CeleBREX 200 MG CAP PO SCH (06:11)
[2023-06-08] MEDS: dexAMETHasone**PF** 10 MG/ML VIAL IV SCH (06:11)
[2023-06-08] MEDS ORDERED: BUPIVACAINE 0.5 % 5 MG/1 ML PF 10ML VIAL ONE (06:11)
--- OUTSIDE RECORDS SUMMARY | 2023-06-08 06:27 | External Medical Summary | Continuity of Care Document ---
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 Primary Care Physician [phone] Encounter [facility] [id number] Date(s): 06/02/23 - 06/02/23 [facility] 1 [facility] [id number] [facility] [place] - Main Building [address] [facility] [place] [address] [phone] Discharge Disposition: Home or Self Care Attending Physician: MD Gallardo Deborah L Referring Physician: MD Gallardo Deborah L Medications atorvastatin 10 mg oral tablet Start: 04/04/23 15:14:00 EST, 1 tab, PO, qhs Start Date: 04/04/23 Status: Ordered Calcium Plus Vitamin D3 Start: 04/04/23 15:16:00 EST Start Date: 04/04/23 Status: Ordered Concerta 54 mg/24 hr oral tablet, extended release Start: 04/04/23 15:13:00 EST, 1 tab, PO, qAM, Refills: 0 Start Date: 04/04/23 Status: Ordered Cymbalta 20 mg oral delayed release capsule Start: 04/04/23 15:14:00 EST, 1 cap, PO, Daily Start Date: 04/04/23 Status: Ordered D3 25 mcg (1000 intl units) oral tablet Start: 04/04/23 15:16:00 EST, 1 tab, PO, Daily Start Date: 04/04/23 Status: Ordered gabapentin Start: 04/04/23 15:15:00 EST, 400 mg =, PO, bid Start Date: 04/04/23 Status: Ordered multivitamin Start: 04/04/23 15:15:00 EST, 1 gummy, PO, Daily Start Date: 04/04/23 Status: Ordered propranolol Start: 04/04/23 15:14:00 EST, 40 mg =, PO, bid Start Date: 04/04/23 Status: Ordered Super B Complex oral tablet Start: 04/04/23 15:15:00 EST, 1 tab, PO, Daily Start Date: 04/04/23 Status: Ordered Problem List Condition Confirmation Course Effective Dates Status Health St atus Informant Palpitations Confirmed Active Social History Social History Type Response Smoking Status Never smoked cigaret yue Sex Female Patient Care team information Care Team Personnel Name: Javon Burdick DO, Kenneth L Position: Referring DIRECT Member Role: Primary Care Provider Address: Address: [address] [address]
--- OUTSIDE RECORDS SUMMARY | 2023-06-08 06:28 | External Medical Summary | Continuity of Care Document ---
Author Name Unknown Organization [facility] Address [address] [facility], [place] [address] Phone [phone] Care Team Providers Care Severity Of Illness Coordinator Name Role Phone [facility] Care Team Information Receive r [phone] Problems Active Problems Provider Date Lumbar cord injury without s garrick bone injury Francis Alejandro JR, DO Onset: 01/08/2009 Intervertebral disc disorder of lumbar region with myelopathy Francis Alejandro JR DO Onset: 01/08/2009 Attention deficit hyperactiv ity disorder, predominantly inattentive type Francis Alejandro JR DO Onset: 01/08/2009 Arthralgia of the lower leg Francis Alejandro JR DO Onset: 01/08/2009 Malaise and fatigue Francis Alejandro JR DO Ons et: 04/29/2011 Generalized anxiety disorder Francis Roberts DO Onset: 04/29/2011 Intervertebral disc disorder of cervical region with myelopathy Francis Alejandro JR DO Onset: 07/29/2015 Hyperlipidemia Francis Alejandro JR DO Onset: 09/13/2018 Obstructive sleep apnea of adult Onset: Note: Document: 10/25/18 - P ulmonary Consult Flatulence, eructation and gas pain Francis pichardo JR DO Onset: 10/15/2020 Chronic low back pain Francis Alejandro JR DO O nset: 08/31/2022 Social History Type Date Description Comments Sex Unknown Tobacco Use Reviewed: 05/09/23 Never Smoked Cigarette s Smoking Status Reviewed: 05/09/23 Never Smoked Cigaret yue Tobacco Use Reviewed: 05/09/23 Never Smoked Cigars Tobacco Use Reviewed: 05/09/23 Never Smoked A Pipe Smokeless Tobacco 05/09/2023 Never Used Smokeless To bacco ETOH Use Denies alcohol use Recreational Drug Use Denies Drug Use Allergies and adverse reactions Description No Known Drug Allergies Medications Active Medications SIG Qnty Indications Order ing Provider Date Propranolol [id number] Tablets take 1 tablet by mouth twice a day 180tabs R51.9 Anyi Frost MD, PhD 01/24/2023 Methylphenidate Hydrochloride ER54mg Tablets ER 24HR 1 tablet by mouth every day 30tabs F90.0 Francis Alejandro JR, DO 01/17/[id number] Part 1 by mouth every day 90caps F41.1 Francis Alejandro JR, DO 02/26/2021 [id number] Tablets 1 by mouth every day 90tabs E78.5 Francis Alejandro JR, DO 04/07/2017 Vitamin B ComplexCapsules 1 po qd 30caps Francis Alejandro JR, DO Calcium 600+Z559-970ps-Ht Tablets 1 po qd 30tabs Francis Alejandro JR, DO [id number] Capsules 1 by mouth two-four times a day 360caps M50.020 Francis Alejandro JR, DO History Medications Methylphenidate Hydrochloride ER72mg Tablets ER 1 by mouth every day 30tabs F90.0 Francis Alejandro JR, DO 12/02/2022 - 01/17/2023 Medications Administered in Office Medication SIG Qnty Indications Ordering Provider Date Injection Ketorolac Trometha mine Per 15 mg/.5cc (Toradol)Injection Anyi ramirez MD, PhD 01/03/2018 Injection Methylprednisolone Acetate 40 MGInjection Anyi boyer MD, PhD 01/03/2018 Injection Methylprednisolone Acetate 20 MGInjection Francis Alejandro JR, DO 12/23/2015 Injection Methylprednisolone Acetate 20 MGInjection Francis Alejandro JR, DO 07/29/2015 Injection Methylprednisolone Acetate 40 MGInjection Francis Alejandro JR, DO 02/25/2010 Influ A (H1N1) VaccineInjection Francis CareyGregorio Alejandro JR, DO 01/08/2009 Injection Methylprednisolone Acetate 40 MGInjection Lukas pearson PA-C 08/22/2003 Immunizations CPT Code Status Date Vaccine Lot # [id number] Given 12/02/2022 Influenza Vaccine High Do se 0.5ML Age 65 & > [id number] 71792 Given 12/10/2021 Influenza Vaccine High Do se 0.5ML Age 65 & > [id number] 42997 Given 09/16/2021 Pfizer Sars-Cov -2 (Covid-19) Vx, BiValent Booster, 12+ 01194 Given 12/29/2020 Moderna Sars-Co v-2 (Cov-19) vacc,100 mcg/ 0.5 mL 12Y+EMR Doc Only 94596 Given 12/15/2020 Influenza Vaccine High Do se 0.5ML Age 65 & > [id number] 75703 Given 04/22/2020 Moderna Sars-Co v-2 (Cov-19) vacc,100 mcg/ 0.5 mL 12Y+EMR Doc Only 65381 Given 03/25/2020 Moderna Sars-Co v-2 (Cov-19) vacc,100 mcg/ 0.5 mL 12Y+EMR Doc Only 61917 Given 11/26/2019 Influenza Vaccine High Do se 0.5ML Age 65 & > [id number] 74641 Given 10/03/2019 Pneumococcal Vaccine/Pneu movax 23 [id number] 90719 Given 12/14/2018 Influenza Virus Vaccine, Quadrivalent, Im Use [id number] 18601 Given 03/09/2017 Influenza Vac, Split, Preservative Free High Dose Age 65 & > [id number] 18370 Given 03/22/2016 Pneumococcal Conjugate-Pr evnar 13 [id number] 94799 Given 12/10/2015 Influenza Vac, Split, Preservative Free High Dose Age 65 & > [id number] 97511 Given 03/12/2014 Influenza Virus Vaccine, Quadrivalent, Im Use [id number] 30899 Given 01/10/2013 Influenza Vac, Split 3 Yr s And Up [id number] 08042 Given 12/08/2011 Influenza Vac, Split 3 Yr s And Up [id number] 27025 Given 02/10/2011 Influenza Vac, Split 3 Yr s And Up [id number] 28842 Given 04/27/2006 Td (Tetanus & D iphtheria) Decavac or Tenivac Age 7 & > [id number] Refused 12/27/2022 Sarscov2 Vaccin e 50 mcg/0.5 ML For Im Use 12 Yrs And Older 05268 Refused 07/21/2022 Shingrix 91046 Refused 07/06/2021 Shingrix 53004 Refused 04/14/2020 Tdap (Tetanus, diphtheria & acel. pertussis) Adacel or Boostrix 21802 Refused 04/14/2020 Shingrix 29761 Refused 10/03/2019 Tdap (Tetanus, diphtheria & acel. pertussis) Adacel or Boostrix 21833 Refused 10/03/2019 Shingrix 17767 Refused 09/13/2018 Pneumococcal Vaccine/Pneu movax 23 [id number] Refused 09/13/2018 Shingrix 05894 Refused 09/13/2018 Tdap (Tetanus, diphtheria & acel. pertussis) Adacel or Boostrix 27357 Refused 01/03/2018 Influenza Virus Vaccine, Quadrivalent, Im Use 00452 Refused 06/30/2017 Tdap (Tetanus, diphtheria & acel. pertussis) Adacel or Boostrix 85797 Refused 06/30/2017 Pneumococcal Vaccine/Pneu movax 23 89578 Refused 05/27/2016 Tdap (Tetanus, diphtheria & acel. pertussis) Adacel or Boostrix 78724 Refused 04/23/2015 Pneumococcal Vaccine/Pneu movax 23 90421 Refused 04/16/2015 Pneumococcal Conjugate-Pr evnar 13 62481 Refused 03/26/2015 Influenza Vac, Split, Preservative Free High Dose Age 65 & > Vital Signs Date Vital Result Comment 05/09/2023 10:22am BP Systolic 120 mmHg BP Diastolic 72 mmHg Body Temperature 97.7 F Heart Rate 64 /min Respiratory Rate 16 /min Weight 182.19 lb Weight 82.640 kg 03/02/2023 3:58pm BP Systolic 126 mmHg BP Diastolic 82 mmHg Body Temperature 98.0 F Heart Rate 74 /min Respiratory Rate 16 /min Weight 181.25 lb Weight 82.215 kg Results Test Acquired Date Facility Test Result H/L Range N ote CBC W/Diff 12/27/2022 [facility] [address] [place] [address] [phone] WBC 7.6 10^3/M3 3.1-9.2 RBC 4.45 10^6/M3 3.70-5.50 HGB 13.4 GR/DL 11.5-16.1 HCT 39.9 % 34.5-47.8 MCV 89.6 CUMICR 82.6-95.8 MCH 30.1 PICOGR 27.9-32.9 MCHC 33.6 % 32.6-35.4 RDW 13.3 % 11.4-14.6 PLT 304 10^3/M3 140-350 MPV 9.4 CUMICR 7.0-10.6 %Neut 63.3 % 40.0-75.0 %Lymph 19.6 % 17.0-45.0 %Taney 11.0 % 1.0-11.0 %Eos 4.7 % 0.0-6.0 %Baso 1.4 % 0.0-2.0 #Neut 4.8 10^3/M3 1.5-8.0 #Lymph 1.5 10^3/M3 0.8-3.2 #Taney 0.8 10^3/M3 0.0-0.8 #Eos 0.4 10^3/m3 0.0-0.4 #Baso 0.1 10^3/m3 0.0-0.2 Comp. Met 12/27/2022 [facility] [address] [place], [place] [id number] [phone] Glucose 89 mg/dL 70-110 BUN 19 mg/dL 6-25 Creatinine 0.7 mg/dL 0.5-1.2 Sodium 141 mEq/L 135-145 Potassium 4.2 mEq/L 3.5-5.0 Chloride 102 mEq/L 95-107 Co-2 30 mEq/L 24-31 Alk Phos 104 IU/L 43-122 Alt(SGPT) 19 IU/L 10-40 Ast(Sgot) 36 IU/L 3-42 T.Bilirubin 0.6 mg/dL 0.1-1.3 Calcium 10.1 mg/dL 8.5-10.6 Tot.Protein 7.2 g/dL 5.8-8.0 Albumin 4.7 g/dL 3.0-5.2 Globulin 2.5 g/dL 2.0-3.4 GFR 87 ML/MIN/1.73SQM >60 Laboratory test finding 12/27/2022 [facility] [address] [place] [address] [phone] Magnesium 2.1 mg/dL 1.7-2.8 TSH With Reflex 12/27/2022 [facility] [address] [place] [address] [phone] TSH (Reflex) 1.77 uIU/mL 0.50-6.00 BMP 11/25/2022 [facility] [address] [place] [address] [phone] Glucose 90 mg/dL 70-110 BUN 16 mg/dL 6-25 Creatinine 0.7 mg/dL 0.5-1.2 Sodium 143 mEq/L 135-145 Potassium 4.2 mEq/L 3.5-5.0 Chloride 102 mEq/L 95-107 Co-2 30 mEq/L 24-31 Calcium 10.3 mg/dL 8.5-10.6 GFR 87 ML/MIN/1.73SQM >60 Lipid 11/25/2022 [facility] [address] [place] [address] [phone] Cholesterol 137 mg/dL 0-200 1 Triglyceride 120 mg/dL 0-150 2 HDLD 47 mg/dL See Comment 3 Measured LDL 69 mg/dL 0-130 4 Calc VLDL 24.0 mg/dL See Comment 5 Chol/HDL 2.9 RATIO See Comment 6 Non-HDL 90 mg/dL See Comment 7 Hepatic 11/25/2022 [facility]. [address] [place] [address] [phone] Alk Phos 79 IU/L 43-122 Alt(SGPT) 19 IU/L 10-40 Ast(Sgot) 37 IU/L 3-42 T.Bilirubin 0.5 mg/dL 0.1-1.3 D.Bilirubin 0.1 mg/dL 0.0-0.3 Tot.Protein 6.6 g/dL 5.8-8.0 Albumin 4.1 g/dL 3.0-5.2 TSH With Reflex 11/25/2022 [facility] [address] [place] [address] [phone] TSH (Reflex) 1.85 uIU/mL 0.50-6.00 CBC W/Diff 11/25/2022 [facility] [address] [place] [address] [phone] WBC 6.3 10^3/M3 3.1-9.2 RBC 4.09 10^6/M3 3.70-5.50 HGB 12.4 GR/DL 11.5-16.1 HCT 37.2 % 34.5-47.8 MCV 90.9 CUMICR 82.6-95.8 MCH 30.3 PICOGR 27.9-32.9 MCHC 33.3 % 32.6-35.4 RDW 13.6 % 11.4-14.6 PLT 252 10^3/M3 140-350 MPV 9.6 CUMICR 7.0-10.6 %Neut 65.4 % 40.0-75.0 %Lymph 21.7 % 17.0-45.0 %Taney 7.7 % 1.0-11.0 %Eos 4.1 % 0.0-6.0 %Baso 1.1 % 0.0-2.0 #Neut 4.1 10^3/M3 1.5-8.0 #Lymph 1.4 10^3/M3 0.8-3.2 #Taney 0.5 10^3/M3 0.0-0.8 #Eos 0.3 10^3/m3 0.0-0.4 #Baso 0.1 10^3/m3 0.0-0.2 Laboratory test finding 11/25/2022 [facility] [address] [place], [place] [id number] [phone] Vitd-25Oh 88 ng/mL 30-100 1 CHOLESTEROL Less than 200mg/dl Low risk 201-239 mg/dl Borderline risk Equal to or greater 240mg/dl High risk 2 TRIGLYCERIDES Less than 150mg/dl Normal 150-199mg/dl Borderline 200-499mg/dl High Greater than 500mg/dl Very High 3 HDL <40mg/dl Elevated Risk 41-59mg/dl Risk >=60mg/dl Least Risk 4 LDL <100mg/dl Optimal 100-129mg/dl Near Optimal 130-159mg/dl Borderline High 160-189mg/dl High >=190 Very High 5 VLDL Less than 30mg/dl Normal 6 CHOL/HDL <4.0 Optimal 4.0-5.0 Borderline >6.0 High Risk 7 NON-HDL 30mg/dl higher than LDL Target Procedures Date Code Description Status 03/02/2023 3288F Fall Risk Assessment Documen delores Completed 03/02/2023 1100F PT Screened Futu re Fall Risk >/=2 Falls In Past Yr/1 W/Injury Completed 01/31/2023 Q0091 Pap Smear Cervic al/Vaginal Obtain, Prepare, Convey To Lab Completed 01/31/2023 G0101 Cancer Screening Cervical/VAginal (Pelvic & Clinical Breast Exam) Completed 01/21/2023 25625 External ECG Rec>7D<15D Revi ew & Interpretation Completed 12/27/2022 21682 External ECG Rec>7D<15D Mustapha rding Completed 12/27/2022 84702 Venipuncture Routine Complet ed 12/02/2022 G0008 Influenza Admin Completed 11/25/2022 56795 Venipuncture Routine Complet ed 03/02/2021 [id number] Mammogram Completed 04/23/2019 [id number] Bone Mineral Density Test Co mpleted Medical Devices Description No Information Available Encounters Type Date Location Provider Dx Diagnosis Office Visit 05/09/2023 10:30a Boris Huerta MD Z01.818 Encounter for other preprocedural examination M25.561 Pain in right knee Office Visit 03/02/2023 4:00p Arcadio Devi O Z00.00 Encntr for general adult medical exam w/o 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, predom inattentive type E78.5 Hyperlipidemia, unsp ecified F41.1 Generalized anxiety disorder E55.9 Vitamin D deficiency , unspecified M54.50 Low back pain, unspe cified R29.6 Repeated falls Z12.31 Encntr screen mammog dustin for malignant neoplasm of breast Office Visit 01/31/2023 11:30a Boris Alejandro JR, DO Z01.411 Encntr for rn gyn exam (general) (routine) w 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, predom inattentive type Office Visit 12/27/2022 11:30a Boris Cheng PA-C R00.2 Palpitations Office Visit 12/02/2022 11:00a Boris Alejandro JR, DO F90.0 Attn-defct hyperactivity disorder, predom inattentive type E78.5 Hyperlipidemia, unsp ecified E55.9 Vitamin D deficiency , unspecified Z23 Encounter for immuni zation Assessments Date Code Description Provider 05/09/2023 Z01.818 Encounter for ot her preprocedural examination Regine Huerta MD 05/09/2023 M25.561 Pain in right knee Dawn Huerta MD 03/23/2023 F41.1 Generalized anxiety disorder Francis Alejandro JR, DO 03/23/2023 E78.5 Hyperlipidemia, unspecified Francis Alejandro JR, DO 03/23/2023 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, predominantly inattentive type Francis Alejandro JR, DO 03/02/2023 Z00.00 Encounter for [facility] adult medical examination without 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 Ken R Ohnmacht, DO 03/02/2023 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, predominantly inattentive type Ken R Ohnmacht, DO 03/02/2023 E78.5 Hyperlipidemia, unspecified Ken R Ohnmacht, DO 03/02/2023 F41.1 Generalized anxiety disorder Ken R Ohnmacht, DO 03/02/2023 E55.9 Vitamin D deficiency, unspec ified Ken R Ohnmacht, DO 03/02/2023 M54.50 Low back pain, unspecified A dam R Ohnmacht, DO 03/02/2023 R29.6 Repeated falls Ken R Ohnmac ht, DO 03/02/2023 Z12.31 Encounter for sc reening mammogram for malignant neoplasm of breast Ken R Ohnmacht, DO 02/20/2023 E78.5 Hyperlipidemia, unspecified Francis Alejandro JR, DO 02/20/2023 R14.0 Abdominal distension (gaseou s) Francisfrancesca Alejandro JR, DO 01/31/2023 Z01.411 Encounter for gy necological examination (general) (routine) with 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 Francisfrancesca Alejandro JR, DO 01/31/2023 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, predominantly inattentive type Francisfrancesca Alejandro JR, DO 01/21/2023 R00.2 Palpitations DONNIE MorrisseyC 12/27/2022 R00.2 Palpitations Nanda Gonzalez PA-C 12/21/2022 E78.5 Hyperlipidemia, unspecified Francisfrancesca Alejandro JR, DO 12/21/2022 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, predominantly inattentive type Francis Alejandro JR, DO 12/21/2022 F41.1 Generalized anxiety disorder Francisfrancesca Alejandro JR, DO 12/02/2022 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, predominantly inattentive type Francis Alejandro JR, DO 12/02/2022 E78.5 Hyperlipidemia, unspecified Francisfrancesca Alejandro JR, DO 12/02/2022 E55.9 Vitamin D deficiency, unspec ified Francisfrancesca Alejandro JR, DO 12/02/2022 Z23 Encounter for immunization K erasmo Alejandro JR, DO 11/25/2022 E78.5 Hyperlipidemia, unspecified Francis Alejandro JR, DO 11/25/2022 E78.5 Hyperlipidemia, unspecified Lab - [facility] 11/25/2022 E55.9 Vitamin D deficiency, unspec ified Francisfrancesca Alejandro JR, DO 11/25/2022 E55.9 Vitamin D deficiency, unspec ified Lab - [facility] Plan of Treatment Future Appointment(s):* 06/29/2023 9:45 am - [facility] * 07/06/2023 10:30 am - Francis Alejandro JR, DO at [facility] 05/09/2023 - Regine Huerta MD* Z01.818 Encounter for other preprocedural examination* Comments:* Had CXR and blood work done at [facility] last week * M25.561 Pain in right knee Functional Status Description No Information Available Mental Status Description No Information Available Referrals Refer to Reason for Referral Status Appt Eduardo e [facility] Cardiovascular Dept Closed 04/[address] [place] [address] [phone]
--- OUTSIDE RECORDS SUMMARY | 2023-06-08 06:28 | External Medical Summary | Continuity of Care Document ---
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 Operator Name Role Phone Darke [facility] Care Team Information Receive r [phone] Problems Active Problems Provider Date Lumbar cord [...] Qnty Indications Order ing Provider Date Propranolol [id number] Tablets take 1 tablet by mouth twice a day 180tabs R51.9 Anyi Frost MD, PhD 01/24/2023 Methylphenidate Hydrochloride ER54mg Tablets ER 24HR 1 tablet by mouth every day 30tabs F90.0 Francis Alejandro JR, DO 01/17/2023 Dexamethasone Sod Phosphate PF10mg/ml Solution to be used for iontophoresis at physical therapy 25ml Francis Alejandro JR, DO 02/01/[id number] Part 1 by mouth every day 90caps F41.1 Francis Alejandro JR, DO 02/26/2021 Monvyqe27yv Tablets 1 by mouth weekly 12tabs M81.0 Francis Alejandro JR, DO 04/23/2019 Rqqczso09ze Tablets 1 by mouth every day 90tabs E78.5 Francis Alejandro JR, DO 04/07/2017 Vitamin B ComplexCapsules 1 po qd 30caps Francis Alejandro JR, DO Calcium 600+U601-038fg-Rh Tablets 1 po qd 30tabs Francis Alejandro JR, DO [id number] Capsules 1 by mouth two-four times a [...] DO 02/25/2010 Influ A (H1N1) VaccineInjection Francis Alejandro JR, DO 01/08/2009 Injection Methylprednisolone Acetate 40 MGInjection Lukas pearson PA-C 08/22/2003 Immunizations CPT Code Status Date Vaccine Lot # [id number] Given 12/02/2022 Influenza Vaccine High Do se 0.5ML Age 65 & > [id number] 45952 Given 12/10/2021 Influenza Vaccine High Do se 0.5ML Age 65 & > [id number] 41127 Given 09/16/2021 Pfizer Sars-Cov -2 (Covid-19) Vx, BiValent Booster, 12+ 62546 Given 12/29/2020 Moderna Sars-Co v-2 (Cov-19) vacc,100 mcg/ 0.5 mL 12Y+EMR Doc Only 96094 Given 12/15/2020 Influenza Vaccine High Do se 0.5ML Age 65 & > [id number] 41273 Given 04/22/2020 Moderna Sars-Co v-2 (Cov-19) vacc,100 mcg/ 0.5 mL 12Y+EMR Doc Only 43938 Given 03/25/2020 Moderna Sars-Co v-2 (Cov-19) vacc,100 mcg/ 0.5 mL 12Y+EMR Doc Only 99185 Given 11/26/2019 Influenza Vaccine High Do se 0.5ML Age 65 & > [id number] 54995 Given 10/03/2019 Pneumococcal Vaccine/Pneu movax 23 [id number] 71465 Given 12/14/2018 Influenza Virus Vaccine, Quadrivalent, Im Use [id number] 56122 Given 03/09/2017 Influenza Vac, Split, Preservative Free High Dose Age 65 & > [id number] 37326 Given 03/22/2016 Pneumococcal Conjugate-Pr evnar 13 [id number] 90963 Given 12/10/2015 Influenza Vac, Split, Preservative Free High Dose Age 65 & > [id number] 53373 Given 03/12/2014 Influenza Virus Vaccine, Quadrivalent, Im Use [id number] 15748 Given 01/10/2013 Influenza Vac, Split 3 Yr s And Up [id number] 62243 Given 12/08/2011 Influenza Vac, Split 3 Yr s And Up [id number] 51828 Given 02/10/2011 Influenza Vac, Split 3 Yr s And Up [id number] 60053 Given 04/27/2006 Td (Tetanus & D iphtheria) Decavac or Tenivac Age 7 & > 79830 Refused 12/27/2022 Sarscov2 Vaccin e 50 mcg/0.5 ML For Im Use 12 Yrs And Older 91351 Refused 07/21/2022 Shingrix 73819 Refused 07/06/2021 Shingrix 43051 Refused 04/14/2020 Tdap (Tetanus, diphtheria & acel. pertussis) Adacel or Boostrix 80223 Refused 04/14/2020 Shingrix 09203 Refused 10/03/2019 Tdap (Tetanus, diphtheria & acel. pertussis) Adacel or Boostrix 82488 Refused 10/03/2019 Shingrix 11354 Refused 09/13/2018 Pneumococcal Vaccine/Pneu movax 23 04511 Refused 09/13/2018 Shingrix 91169 Refused 09/13/2018 Tdap (Tetanus, diphtheria & acel. pertussis) Adacel or Boostrix 68897 Refused 01/03/2018 Influenza Virus Vaccine, Quadrivalent, Im Use 80377 Refused 06/30/2017 Tdap (Tetanus, diphtheria & acel. pertussis) Adacel or Boostrix 67623 Refused 06/30/2017 Pneumococcal Vaccine/Pneu movax 23 43461 Refused 05/27/2016 Tdap (Tetanus, diphtheria & acel. pertussis) Adacel or Boostrix 11387 Refused 04/23/2015 Pneumococcal Vaccine/Pneu movax 23 41020 Refused 04/16/2015 Pneumococcal Conjugate-Pr evnar 13 33689 Refused 03/26/2015 Influenza Vac, Split, Preservative Free [...] H/L Range N ote CBC W/Diff 12/27/2022 [facility] [address] [place] [address] [phone] WBC 7.6 10^3/M3 3.1-9.2 RBC 4.45 10^6/M3 3.70-5.50 HGB 13.4 GR/DL 11.5-16.1 HCT 39.9 % 34.5-47.8 MCV 89.6 CUMICR 82.6-95.8 MCH 30.1 PICOGR 27.9-32.9 MCHC 33.6 % 32.6-35.4 RDW 13.3 % 11.4-14.6 PLT 304 10^3/M3 140-350 MPV 9.4 CUMICR 7.0-10.6 %Neut 63.3 % 40.0-75.0 %Lymph 19.6 % 17.0-45.0 %[place] 11.0 % 1.0-11.0 %Eos 4.7 % 0.0-6.0 %Baso 1.4 % 0.0-2.0 #Neut 4.8 10^3/M3 1.5-8.0 #Lymph 1.5 10^3/M3 0.8-3.2 #[place] 0.8 10^3/M3 0.0-0.8 #Eos 0.4 10^3/m3 0.0-0.4 #Baso 0.1 10^3/m3 0.0-0.2 Comp. Met 12/27/2022 [facility] [address] [place] [address] [phone] Glucose 89 mg/dL 70-110 BUN 19 mg/dL [...] 87 ML/MIN/1.73SQM >60 Laboratory test finding 12/27/2022 [facility] [address] [place] [address] [phone] Magnesium 2.1 mg/dL 1.7-2.8 TSH With Reflex 12/27/2022 [facility] [address] [place] [address] [phone] TSH (Reflex) 1.77 uIU/mL 0.50-6.00 BMP 11/25/2022 [facility] [address] [place] [address] [phone] Glucose 90 mg/dL 70-110 BUN 16 mg/dL 6-25 Creatinine 0.7 mg/dL 0.5-1.2 Sodium 143 mEq/L 135-145 Potassium 4.2 mEq/L 3.5-5.0 Chloride 102 mEq/L 95-107 Co-2 30 mEq/L 24-31 Calcium 10.3 mg/dL 8.5-10.6 GFR 87 ML/MIN/1.73SQM >60 Lipid 11/25/2022 [facility] [address] [place] [address] [phone] Cholesterol 137 mg/dL 0-200 1 Triglyceride 120 mg/dL 0-150 2 HDLD 47 mg/dL See Comment 3 Measured LDL 69 mg/dL 0-130 4 Calc VLDL 24.0 mg/dL See Comment 5 Chol/HDL 2.9 RATIO See Comment 6 Non-HDL 90 mg/dL See Comment 7 Hepatic 11/25/2022 [facility] [address] [place], [place] [id number] [phone] Alk Phos 79 IU/L 43-122 Alt(SGPT) 19 IU/L 10-40 Ast(Sgot) 37 IU/L 3-42 T.Bilirubin 0.5 mg/dL 0.1-1.3 D.Bilirubin 0.1 mg/dL 0.0-0.3 Tot.Protein 6.6 g/dL 5.8-8.0 Albumin 4.1 g/dL 3.0-5.2 TSH With Reflex 11/25/2022 [facility] [address] [place], [place] [id number] [phone] TSH (Reflex) 1.85 uIU/mL 0.50-6.00 CBC W/Diff 11/25/2022 [facility] [address] [place], [place] [phone] WBC 6.3 10^3/M3 3.1-9.2 RBC 4.09 10^6/M3 3.70-5.50 HGB 12.4 GR/DL 11.5-16.1 HCT 37.2 % 34.5-47.8 MCV 90.9 CUMICR 82.6-95.8 MCH 30.3 PICOGR 27.9-32.9 MCHC 33.3 % 32.6-35.4 RDW 13.6 % 11.4-14.6 PLT 252 10^3/M3 140-350 MPV 9.6 CUMICR 7.0-10.6 %Neut 65.4 % 40.0-75.0 %Lymph 21.7 % 17.0-45.0 %[place] 7.7 % 1.0-11.0 %Eos 4.1 % 0.0-6.0 %Baso 1.1 % 0.0-2.0 #Neut 4.1 10^3/M3 1.5-8.0 #Lymph 1.4 10^3/M3 0.8-3.2 #[place] 0.5 10^3/M3 0.0-0.8 #Eos 0.3 10^3/m3 0.0-0.4 #Baso 0.1 10^3/m3 0.0-0.2 Laboratory test finding 11/25/2022 [facility] [address] [place], [place] [id number] [phone] Vitd-25Oh 88 ng/mL 30-100 1 CHOLESTEROL Less [...] LDL Target Procedures Date Code Description Status 05/09/2023 G2211 Continuation of care e/m vis it add on Completed 03/02/2023 3288F Fall Risk Assessment Documen delores Completed 03/02/2023 1100F PT Screened Futu re Fall Risk >/=2 Falls In Past Yr/1 W/Injury Completed 01/31/2023 Q0091 Pap Smear Cervic al/Vaginal Obtain, Prepare, Convey To Lab Completed 01/31/2023 G0101 Cancer Screening Cervical/VAginal (Pelvic & Clinical Breast Exam) Completed 01/21/2023 43275 External ECG Rec>7D<15D Revi ew & Interpretation Completed 12/27/2022 11811 External ECG Rec>7D<15D Mustapha rding Completed 12/27/2022 29713 Venipuncture Routine [facility] ed 12/02/2022 G0008 Influenza Admin Completed 11/25/2022 41020 Venipuncture Routine [facility] ed 03/02/2021 [id number] Mammogram Completed 04/23/2019 [id number] Bone Mineral Density Test Co mpleted Medical Devices Description No Information Available Encounters Type Date Location Provider Dx Diagnosis Office Visit 05/09/2023 10:30a Boris Huerta MD Z01.818 Encounter for other preprocedural examination Office Visit 03/02/2023 4:00p Boris Ac DO Z00.00 Encntr for general adult medical exam w/o 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, predom inattentive type E78.5 Hyperlipidemia, unsp ecified F41.1 Generalized anxiety disorder E55.9 Vitamin D deficiency , unspecified M54.50 Low back pain, unspe cified R29.6 Repeated falls Z12.31 Encntr screen mammog dustin for malignant neoplasm of breast Office Visit 01/31/2023 11:30a [facility] Francis Alejandro JR, DO Z01.411 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) w 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, predom inattentive type Office Visit 12/27/2022 11:30a [facility] Nanda Cheng PA-C R00.2 Palpitations Office Visit 12/02/2022 11:00a [facility] Francis Alejandro JR, DO 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-defct hyperactivity disorder, predom inattentive type E78.5 Hyperlipidemia, unsp ecified E55.9 Vitamin D deficiency , unspecified Z23 Encounter for immuni zation Assessments Date Code Description Provider 05/09/2023 Z01.818 Encounter for ot her preprocedural examination Regine Huerta MD 03/23/2023 F41.1 Generalized anxiety disorder Francis Alejandro JR, DO 03/23/2023 E78.5 Hyperlipidemia, unspecified Francis Alejandro JR, DO 03/23/2023 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, predominantly inattentive type Francis Alejandro JR, DO 03/02/2023 Z00.00 [facility] adult medical examination without 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 Ken [...] DO 02/20/2023 R14.0 Abdominal distension (gaseou s) Francis Alejandro JR, DO 01/31/2023 Z01.411 Encounter for gy necological examination (general) (routine) with 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 Francis Alejandro JR, DO 01/31/2023 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, predominantly inattentive type Francis Alejandro JR, DO 01/21/2023 R00.2 Palpitations Nanda Gonzalez PA-C 12/27/2022 R00.2 Palpitations Nanda Gonzalez PA-C 12/21/2022 E78.5 Hyperlipidemia, unspecified Francis Alejandro JR, DO 12/21/2022 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, predominantly inattentive type Francis Alejandro JR, DO 12/21/2022 F41.1 Generalized anxiety disorder Francis Alejandro JR, DO 12/02/2022 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, predominantly inattentive type Francis Alejandro JR, DO 12/02/2022 E78.5 Hyperlipidemia, unspecified Francis Alejandro JR, DO 12/02/2022 E55.9 Vitamin D deficiency, unspec ified Francis Alejandro JR, DO 12/02/2022 Z23 Encounter for immunization K erasmo Alejandro JR, DO 11/25/2022 E78.5 Hyperlipidemia, unspecified Francis Alejandro JR, DO 11/25/2022 E78.5 Hyperlipidemia, unspecified Lab - [facility] 11/25/2022 E55.9 Vitamin D deficiency, unspec ified Francis Alejandro JR, DO 11/25/2022 E55.9 Vitamin D deficiency, unspec ified Lab - [facility] Plan of Treatment Future Appointment(s):* 06/29/2023 9:45 am - [facility] * 07/06/2023 10:30 am - Francis Alejandro JR, DO at [facility] 05/09/2023 - Regine Huerta MD* Z01.818 Encounter for other preprocedural examination* Comments:* Had CXR and blood work done at [facility] last week Functional Status Description No Information Available Mental Status Description No Information Available Referrals Refer to Reason for Referral Status Appt Eduardo e [facility] Cardiovascular Dept Closed 04/[address] [place] [address] [phone]
--- OUTSIDE RECORDS SUMMARY | 2023-06-08 06:29 | External Medical Summary | Continuity of Care Document ---
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 Name Role Phone Levy [facility] Care Team Information Receive r [phone] Problems Active Problems Provider Date Lumbar cord [...] Qnty Indications Order ing Provider Date Propranolol LRY66np Tablets take 1 tablet by mouth twice a day 180tabs R51.9 Anyi Frost MD, PhD 01/24/2023 Methylphenidate Hydrochloride ER54mg Tablets ER 24HR 1 tablet by mouth every day 30tabs F90.0 Francis Alejandro JR, DO 01/17/2023 Dexamethasone Sod Phosphate PF10mg/ml Solution to be used for iontophoresis at physical therapy 25ml Francis Alejandro JR, DO 02/01/[address] Part 1 by mouth every day 90caps F41.1 Francis Alejandro JR, DO 02/26/2021 Viquqok51jv Tablets 1 by mouth weekly 12tabs M81.0 Francis Alejandro JR, DO 04/23/2019 Mhzwssz21fk Tablets 1 by mouth every day 90tabs E78.5 Francis Alejandro JR, DO 04/07/2017 Vitamin B ComplexCapsules 1 po qd 30caps Francis Alejandro JR, DO Calcium 600+H415-426wi-Fs Tablets 1 po qd 30tabs Francis Alejandro JR, DO Rtzzwoogyl958ec Capsules 1 by mouth two-four times a [...] CPT Code Status Date Vaccine Lot # [id number] Given 12/02/2022 Influenza Vaccine High Do se 0.5ML Age 65 & > [id number] 86049 Given 12/10/2021 Influenza Vaccine High Do se 0.5ML Age 65 & > [id number] 08056 Given 09/16/2021 Pfizer Sars-Cov -2 (Covid-19) Vx, BiValent Booster, 12+ 22290 Given 12/29/2020 Moderna Sars-Co v-2 (Cov-19) vacc,100 mcg/ 0.5 mL 12Y+EMR Doc Only 90014 Given 12/15/2020 Influenza Vaccine High Do se 0.5ML Age 65 & > [id number] 73092 Given 04/22/2020 Moderna Sars-Co v-2 (Cov-19) vacc,100 mcg/ 0.5 mL 12Y+EMR Doc Only 31239 Given 03/25/2020 Moderna Sars-Co v-2 (Cov-19) vacc,100 mcg/ 0.5 mL 12Y+EMR Doc Only 30817 Given 11/26/2019 Influenza Vaccine High Do se 0.5ML Age 65 & > 221710 00316 Given 10/03/2019 Pneumococcal Vaccine/Pneu movax 23 [id number] 03176 Given 12/14/2018 Influenza Virus Vaccine, Quadrivalent, Im Use [id number] 15317 Given 03/09/2017 Influenza Vac, Split, Preservative Free High Dose Age 65 & > [id number] 30761 Given 03/22/2016 Pneumococcal Conjugate-Pr evnar 13 [id number] 10305 Given 12/10/2015 Influenza Vac, Split, Preservative Free High Dose Age 65 & > [id number] 02855 Given 03/12/2014 Influenza Virus Vaccine, Quadrivalent, Im Use [id number] 43116 Given 01/10/2013 Influenza Vac, Split 3 Yr s And Up [id number] 70335 Given 12/08/2011 Influenza Vac, Split 3 Yr s And Up [id number] 24148 Given 02/10/2011 Influenza Vac, Split 3 Yr s And Up [id number] 39915 Given 04/27/2006 Td (Tetanus & D iphtheria) Decavac or Tenivac Age 7 & > 14953 Refused 12/27/2022 Sarscov2 Vaccin e 50 mcg/0.5 ML For Im Use 12 Yrs And Older 10375 Refused 07/21/2022 Shingrix 05150 Refused 07/06/2021 Shingrix 29700 Refused 04/14/2020 Tdap (Tetanus, diphtheria & acel. pertussis) Adacel or Boostrix 38115 Refused 04/14/2020 Shingrix 79655 Refused 10/03/2019 Tdap (Tetanus, diphtheria & acel. pertussis) Adacel or Boostrix 66603 Refused 10/03/2019 Shingrix 76124 Refused 09/13/2018 Pneumococcal Vaccine/Pneu movax 23 85258 Refused 09/13/2018 Shingrix 79837 Refused 09/13/2018 Tdap (Tetanus, diphtheria & acel. pertussis) Adacel or Boostrix 85623 Refused 01/03/2018 Influenza Virus Vaccine, Quadrivalent, Im Use 04396 Refused 06/30/2017 Tdap (Tetanus, diphtheria & acel. pertussis) Adacel or Boostrix 75323 Refused 06/30/2017 Pneumococcal Vaccine/Pneu movax 23 44273 Refused 05/27/2016 Tdap (Tetanus, diphtheria & acel. pertussis) Adacel or Boostrix 87793 Refused 04/23/2015 Pneumococcal Vaccine/Pneu movax 23 98884 Refused 04/16/2015 Pneumococcal Conjugate-Pr evnar 13 02321 Refused 03/26/2015 Influenza Vac, Split, Preservative Free [...] H/L Range N ote CBC W/Diff 12/27/2022 [facility]. [address] [place] [address] [phone] WBC 7.6 10^3/M3 3.1-9.2 RBC 4.45 10^6/M3 3.70-5.50 HGB 13.4 GR/DL 11.5-16.1 HCT 39.9 % 34.5-47.8 MCV 89.6 CUMICR 82.6-95.8 MCH 30.1 PICOGR 27.9-32.9 MCHC 33.6 % 32.6-35.4 RDW 13.3 % 11.4-14.6 PLT 304 10^3/M3 140-350 MPV 9.4 CUMICR 7.0-10.6 %Neut 63.3 % 40.0-75.0 %Lymph 19.6 % 17.0-45.0 %[place] 11.0 % 1.0-11.0 %Eos 4.7 % 0.0-6.0 %Baso 1.4 % 0.0-2.0 #Neut 4.8 10^3/M3 1.5-8.0 #Lymph 1.5 10^3/M3 0.8-3.2 #[place] 0.8 10^3/M3 0.0-0.8 #Eos 0.4 10^3/m3 0.0-0.4 #Baso 0.1 10^3/m3 0.0-0.2 Comp. Met 12/27/2022 [facility]. [address] [place] [address] [phone] Glucose 89 mg/dL 70-110 BUN 19 mg/dL [...] 87 ML/MIN/1.73SQM >60 Laboratory test finding 12/27/2022 [facility] [address] [place] [address] [phone] Magnesium 2.1 mg/dL 1.7-2.8 TSH With Reflex 12/27/2022 [facility] [address] [place] [address] [phone] TSH (Reflex) 1.77 uIU/mL 0.50-6.00 BMP 11/25/2022 [facility]. [address] [place] [address] [phone] Glucose 90 mg/dL 70-110 BUN 16 mg/dL 6-25 Creatinine 0.7 mg/dL 0.5-1.2 Sodium 143 mEq/L 135-145 Potassium 4.2 mEq/L 3.5-5.0 Chloride 102 mEq/L 95-107 Co-2 30 mEq/L 24-31 Calcium 10.3 mg/dL 8.5-10.6 GFR 87 ML/MIN/1.73SQM >60 Lipid 11/25/2022 [facility] [address] [place] [address] [phone] Cholesterol 137 mg/dL 0-200 1 Triglyceride 120 mg/dL 0-150 2 HDLD 47 mg/dL See Comment 3 Measured LDL 69 mg/dL 0-130 4 Calc VLDL 24.0 mg/dL See Comment 5 Chol/HDL 2.9 RATIO See Comment 6 Non-HDL 90 mg/dL See Comment 7 Hepatic 11/25/2022 [facility]. [address] [place], [place] [phone] Alk Phos 79 IU/L 43-122 Alt(SGPT) 19 IU/L 10-40 Ast(Sgot) 37 IU/L 3-42 T.Bilirubin 0.5 mg/dL 0.1-1.3 D.Bilirubin 0.1 mg/dL 0.0-0.3 Tot.Protein 6.6 g/dL 5.8-8.0 Albumin 4.1 g/dL 3.0-5.2 TSH With Reflex 11/25/2022 [facility]. [address] [place], [place] 84[address] [phone] TSH (Reflex) 1.85 uIU/mL 0.50-6.00 CBC W/Diff 11/25/2022 [facility]. [address] [place], [place] [address] [phone] WBC 6.3 10^3/M3 3.1-9.2 RBC 4.09 10^6/M3 3.70-5.50 HGB 12.4 GR/DL 11.5-16.1 HCT 37.2 % 34.5-47.8 MCV 90.9 CUMICR 82.6-95.8 MCH 30.3 PICOGR 27.9-32.9 MCHC 33.3 % 32.6-35.4 RDW 13.6 % 11.4-14.6 PLT 252 10^3/M3 140-350 MPV 9.6 CUMICR 7.0-10.6 %Neut 65.4 % 40.0-75.0 %Lymph 21.7 % 17.0-45.0 %[place] 7.7 % 1.0-11.0 %Eos 4.1 % 0.0-6.0 %Baso 1.1 % 0.0-2.0 #Neut 4.1 10^3/M3 1.5-8.0 #Lymph 1.4 10^3/M3 0.8-3.2 #[place] 0.5 10^3/M3 0.0-0.8 #Eos 0.3 10^3/m3 0.0-0.4 #Baso 0.1 10^3/m3 0.0-0.2 Laboratory test finding 11/25/2022 [facility]. [address] [place], [place] [address] [phone] Vitd-25Oh 88 ng/mL 30-100 1 CHOLESTEROL Less [...] (Pelvic & Clinical Breast Exam) Completed 01/21/2023 90956 External ECG Rec>7D<15D Revi ew & Interpretation Completed 12/27/2022 03857 External ECG Rec>7D<15D Mustapha rding Completed 12/27/2022 57317 Venipuncture Routine [facility] ed 12/02/2022 G0008 Influenza Admin Completed 11/25/2022 80731 Venipuncture Routine [facility] ed 03/02/2021 [id number] Mammogram Completed 04/23/2019 [id number] Bone Mineral Density Test Co mpleted Medical [...] neoplasm of breast Office Visit 01/31/2023 11:30a [facility] Francis Alejandro JR, DO Z01.411 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) w 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, predom inattentive type Office Visit 12/27/2022 11:30a [facility] Nanda Cheng PA-C R00.2 Palpitations Office Visit 12/02/2022 11:00a [facility] Francis Alejandro JR, DO F90.0 Attn-defct hyperactivity [...] Alejandro JR, DO 03/02/2023 Z00.00 Encounter for [facility] adult medical examination without 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 [...] Alejandro JR, DO 11/25/2022 E78.5 Hyperlipidemia, unspecified Franics Alejandro JR, DO 11/25/2022 E78.5 Hyperlipidemia, unspecified Lab - [facility] 11/25/2022 E55.9 Vitamin D deficiency, unspec ified Francis Alejandro JR, DO 11/25/2022 E55.9 Vitamin D deficiency, unspec ified Lab - [facility] Plan of Treatment Future Appointment(s):* 06/29/2023 9:45 am - [facility] * 07/06/2023 10:30 am - Francis Alejandro JR, DO at [facility] 05/09/2023 - Regine Huerta MD* Z01.818 Encounter for other preprocedural examination* Comments:* Had CXR and blood work done at [facility] last week Functional Status Description No Information Available Mental Status Description No Information Available Referrals Refer to Reason for Referral Status Appt Eduardo e [facility] Cardiovascular Dept Closed 04/[address] [place] [address] [phone]
[2023-06-08] MEDS ORDERED: MIDAZOLAM HCL 1 MG/ML 2ML VIAL ONE ×2 (06:43→06:45)
[2023-06-08] MEDS ORDERED: fentaNYL citrate PF 100 MCG/2 ML VIAL ONE (06:43)
[2023-06-08] MEDS ORDERED: fentaNYL citrate PF 100 MCG/2 ML VIAL IV PRN (06:54)
[2023-06-08] MEDS ORDERED: ePHEDrine sulfate 50 MG/ML AMP IV PRN (06:54)
[2023-06-08] MEDS ORDERED: HYDROmorphone INJ 2 MG/ML SYR/VIAL IV PRN (06:54)
[2023-06-08] MEDS ORDERED: ATROPINE SULFATE 0.1 MG/ML 10ML SYR IV PRN (06:54)
[2023-06-08] MEDS ORDERED: PROMETHAZINE HCL 6.25 MG in SODIUM CHLORIDE 0.9% 50 ML IV PRN (06:54)
[2023-06-08] MEDS ORDERED: ONDANSETRON INJ 2 MG/ML 2 ML VIAL IV PRN ×2 (06:54→10:21)
[2023-06-08] MEDS: TRANEXAMIC ACID 1,000 MG **IV Pre-op IV SCH (06:57)
--- NOTE | 2023-06-08 07:07 | History & Physical Bridge Note ---
Date of Service June 08, 2023 History & Physical Bridge Note I have examined the patient, reviewed the History & Physical and in the interval since the performance of the History & Physical I have noted the following changes of clinical significance: no changes noted
[2023-06-08] MEDS: ceFAZolin 2000MG 2,000 MG/15 ML SYR IV SCH ×2 (07:14→15:47)
[2023-06-08] MEDS: ROPIV 0.5% 246mg, Ketorolac 30mg, EPINEPHrine 0.5mg in NSS INFIL SCH (07:49)
[2023-06-08] MEDS: TRANEXAMIC ACID 1,000 MG **IV Intra-op IV SCH (08:44)
--- NOTE | 2023-06-08 09:00 | Operative Report ---
Post Operative Report Pre & Post Diagnosis Preoperative diagnosis: End-stage osteoarthritis right knee Operation Date: 06/08/23 07:00 <No data on this case meets the specified criteria> Postoperative diagnosis: End-stage osteoarthritis right knee I identified the patient and participated in the time-out.: Yes Procedure Right total knee arthroplasty, lateral release, jesús and Acticoat superficial wound VAC Operation Date: 06/08/23 07:00 <No data on this case meets the specified criteria> Surgeon Jorge Monet MD Helicopter Utility Aircrewman Vish BONNER Estimated Blood Loss 5 Findings Consistent with Post-Op Diagnosis Specimens Bone cuts Drains 2 Hemovac Anesthesia Type MAC Spinal Regional Complications none Disposition Disposition: Recovery Room Indications 73-year-old female with right knee osteoarthritis. She has a varus knee bone-on -bone medial compartment she has patellofemoral medial compartment osteoarthritis. Proximal and knee she has unicompartmental knee replacement with instability and some pain. Plan right knee is a total knee replacement. Description of Procedure Patient was taken to the operating room placed supine on the operating table and anesthetized under spinal MAC regional block anesthesia. Exam under anesthesia demonstrated lateral collateral ligament laxity no pseudolaxity medially varus knee full range of motion. A pneumatic tourniquet was placed about the thigh of the right lower extremity. The right lower extremity was prepped and draped in usual sterile fashion. The leg was elevated exsanguinated with an Esmarch bandage and the pneumatic tourniquet was raised to 300 mm mercury. An anterior incision was made across the right knee. The skin was incised longitudinally subcutaneous flaps were elevated and an incision was made through the medial retinaculum extending up into the mid third of the quadriceps tendon and extended down to the medial tibial tubercle. Intra-articular findings demonstrated medial compartment patellofemoral osteoarthritis. [id number] medial compartment grade 4 osteoarthritis and small medial meniscus with some meniscus tearing. The knee was exposed by excising the infrapatellar fat pad, excising the meniscal remnants and anterior cruciate ligament. Any inflamed synovial tissue was resected. The fat pad over the anterior femur was resected for placement of the component in that area. The lateral synovial bands were release. The femur was exposed. The custom femoral cutting block was pinned in position. The distal femoral cutting block was applied. The distal femoral cut was made with the oscillating saw. The size 7, 4-in-1 cutting block was placed. The anterior and posterior chamfer cuts were made. The knee was extended and a subperiosteal peel lateral release was performed around the patella. The patella width was measured and width was reproduced using freehand cut technique. The 32 millimeter symmetrical patella was used. 3 drill holes are made for the pegs. The tibia was exposed. A custom tibial cutting block was positioned and drill holes were made for the cutting guide. Cutting guide was placed and the proximal cut was made with the oscillating saw. All osteophytes were resected. The lamina spreader operator was used to assess ligamentous balance and the ligaments were balanced in extension and flexion. Medial and posterior medial and medial pie crusting releases were required. The tibia was reexposed and measured for a size D tibial component. This was externally rotated in line with the tibial tubercle and the fixation pins were drilled. The proximal tibia was fashioned with the drill and punch. The size 7 femoral trial was inserted. Notch was cut and the collet was placed. The trial CPS inserts were used. The 14 mm insert gave balanced ligaments through full range of motion. The patella tracked with some lateral tilt so I had to do a lateral release which was performed extra-articular leaving the synovium intact. Patella tracked centrally afterwards. the trials were removed. The orthomix anesthetic cocktail was injected per protocol. The knee was then copiously irrigated with pulsatile lavage saline solution. The final components were cemented with Refobacin bone cement. The final components were 7 narrow posterior stabilized right persona femoral component, right the tibial component with a 14 x 30 mm cemented stem, 14 CPS posterior stabilized tibial polyethylene and a 32 mm symmetrical polyethylene patella. After the cement cured with the knee in full extension the Betadine soak was used per protocol. The knee joint was copiously irrigated with pulsatile lavage saline solution . 2 drains were brought out laterally and connected to a Hemovac. The quadriceps tendon and medial retinaculum were closed with interrupted [id number] #1 Vicryl sutures. The knee was taken through a full range of motion which was 0 through 130 degrees and the repair was secure. The subcutaneous tissues were closed with 2-0 Vicryl sutures and skin was closed with nehemias.A jesús and Acticoat superficial wound VAC was applied and the patient tolerated the procedure well. Vish BONNER my physician glass ribbon machine operator assistant participated as assistant spa manager and was an integral part in all aspects of the procedure, he assisted in soft tissue retraction, instrument management ,leg positioning, the closure, application superficial wound VAC and will participate in the postoperative care of the patient. I attest to the content of the Intraoperative Record and any orders documented therein. Any exceptions are noted below.
[2023-06-08] MEDS ORDERED: PROPOFOL IV EMULSION 10 MG/ML 20 ML VIAL IV ONE (09:13)
[2023-06-08] MEDS ORDERED: ePHEDrine sulfate 50 MG/ML AMP ONE (09:13)
[2023-06-08] MEDS ORDERED: LIDOCAINE 2% 2 ML VIAL/AMP(20MG/ML) INFIL ONE (09:13)
--- NOTE | 2023-06-08 09:48 | XRay Report ---
TWO VIEWS RIGHT KNEE CLINICAL HISTORY: Postoperative examination. FINDINGS: AP and crosstable lateral portable views of the right knee are obtained. A right knee arthr oplasty is in near anatomic alignment. There has been undersurface remodeling of the patella. No acut e fracture is seen. There are expected postoperative changes around the knee including skin clips, a surgical drain, soft tissue edema, and subcutaneous gas. IMPRESSION: Expected postoperative changes status post right knee arthroplasty. No acute fracture is seen. ACT 112: Negative or not required by law. Electronically signed by: Christiano Vasquez M.D. 06/08/2023 9:47 AM
[2023-06-08] MEDS ORDERED: HYDROmorphone INJ 0.5 MG/0.5 ML SYR IV PRN (10:21)
[2023-06-08] MEDS ORDERED: bisacodyL 10 MG SUPP PR PRN (10:21)
[2023-06-08] MEDS ORDERED: diphenhydrAMINE 50 MG/ML VIAL IV PRN (10:21)
[2023-06-08] MEDS ORDERED: MAGNESIUM HYDROXIDE SUSP 30 ML UDC PO PRN (10:21)
[2023-06-08] MEDS ORDERED: NALOXONE HCL 0.4 MG/1 ML VIAL/CARP IV PRN (10:21)
--- NOTE | 2023-06-08 10:25 | Anesthesiology Progress Note ---
Date of Service June 08, 2023 Anesthesia Post Procedure Vital Signs Vital Signs: Temp Pulse Resp BP Pulse Ox O2 Del Method O2 Flow Rate 06/08/23 09:45 36.4 C L 66 22 123/55 L 100 Room Air 06/08/23 09:35 62 15 131/56 L 100 Room Air 06/08/23 09:25 59 L 17 140/56 L 100 Oxymask 4 06/08/23 09:17 36.7 C 62 15 114/47 L 100 Oxymask 14 06/08/23 05:50 36.6 C 71 20 145/68 H 98 Room Air Transfer of Care Handoff Completed per policy Notes Mental Status: alert / awake / arousable and participated in evaluation Nausea / Vomiting: adequately controlled Pain: adequately controlled Airway Patency, RR, SpO2: stable & adequate BP & HR: stable & adequate Hydration State: stable & adequate Neuraxial Anesthesia: was administered and sensory block is resolving Anesthetic Complications: no major complications apparent and Pt Satisfied with anesthetic care
--- NOTE | 2023-06-08 10:36 | Hospitalist Consultation ---
Date of Consultation June 08, 2023 Assessment & Plan (1) Status post right knee replacement: -Pain control, perioperative abx, IV fluids, and DVT PPX per the primary team -Patient is currently Post-op Day #0 S/P right knee replacement with Dr. Monet -Tolerated the procedure well, no reported complications -Agree with AM CBC and BMP tomorrow, we will follow -Agree with BID Aspirin starting tonight for DVT PPX -Please reach out with any questions or concerns -Medicine will continue to follow (2) ADHD: -Continue methylphenidate (3) Coronary artery disease: -Continue statin -Starting BID aspirin for DVT PPX this evening (4) Sleep apnea: -Patient denies needed HS CPAP while admitted -Can use PRN O2 HS if needed -Incentive spirometry (5) Depression: -Continue Duloxetine (6) Chronic headaches: -Continue BID Propranolol Plan The patient was discussed with Dr. Rae at the time of the consult Supervising Physician Co-Signing Physician Notes I personally saw and examined the patient. I verified all jennings points and agree with Faraz Page PA-C with the following exceptions and/or additions: 73 year old female POD#0 right total knee arthroplasty. Estimated blood loss 5ml. No current concerns or questions from the patient. O/E HS RRR, no murmurs, Chest CTAB, Abdo SNT A/P VTE/pain/bowel management per primary orthopedic team Back pain - continue gabapentin Otherwise as above History of Present Illness Reason for Consultation: Post-op medical management Requesting Physician: Jorge Monet MD Attending Physician: Dr. Ramon Rae History of Present Illness Mary is a 73 year old female with a PMH significant for Depression, ADHD, hyperlipidemia, [place], and recurrent syncope who presented to the [facility] OR on 06/08/23 for scheduled right total knee arthropathy with Dr. Monet. Per the operative report, the patient had an EBL of 5cc, anesthesia type was listed as "MAC Spinal Regional", and there were no reported intraoperative complications. The patient was resting comfortably in bed at the time of the exam. Doing well after her surgery, no pain at this time. Slowly regaining feeling in the BL LE's. Regarding her previous episodes of syncope, these normally occurred while she was at rest shortly after waking in the am. Her HR was usually elevated but she denies actually losing consciousness. She would feel lightheaded/dizzy, these symptoms would resolve when she would lay down. Last episode was in February of this year. Since her propranolol dose was increased to BID she has not had another episode. She does use HS CPAP at home but does not want to use it while admitted. She did have her am doses of gabapentin and propranolol prior to arrival this am. Please refer to Dr. Rae's attestation for any changes to the treatment plan Allergies Allergy/AdvReac Type Severity Reaction Status Date / Time grass pollen-perennial rye, Allergy Mild "SNEEZING Verified 06/08/23 05:45 standar AND RUNNY NOSE" Home Medications Medication Instructions Recorded Confirmed Type atorvastatin 10 mg tablet 10 mg PO HS 10/25/18 06/08/23 History calcium carbonate 500 mg-vitamin 1 tab PO BID 10/25/18 06/08/23 History D3 10 mcg (400 unit) tablet cholecalciferol (vitamin D3) 25 1,000 units PO QAM 10/25/18 06/08/23 History mcg (1,000 unit) capsule duloxetine 30 mg capsule,delayed 30 mg PO HS 10/25/18 06/08/23 History release methylphenidate HCl 54 mg 54 mg PO QAM 10/25/18 06/08/23 History tablet,extended release 24 hr propranolol 60 mg capsule,24 40 mg PO BID #30 caps 10/25/18 06/08/23 History hr,extended release vitamin B complex (Super B-50 1 cap PO QAM 10/25/18 06/08/23 History Complex capsule) alendronate 70 mg tablet (Fosamax) 70 mg PO WK 10/15/19 06/08/23 History gabapentin 100 mg capsule 400 mg PO BID 01/09/21 06/08/23 History multivitamin 1 tab PO QAM 02/17/21 06/08/23 History acetaminophen 500 mg tablet 1,000 mg (2 x 500 mg) PO Q8 14 06/09/23 Rx (Tylenol Extra Strength) days #84 tabs aspirin 81 mg tablet,delayed 81 mg PO BID 30 days #60 tabs 06/09/23 Rx release cefadroxil 500 mg capsule 500 mg PO BID #14 caps 06/09/23 Rx oxycodone 5 mg tablet 5 mg PO Q4H PRN pain #30 tabs 06/09/23 Rx Patient History Medical History History of chronic back pain Depression SVT (supraventricular tachycardia) (~12/2022) pt. reports hr 180's, saw PCP > increased propranolol, home monitor x 2 weeks, saw cardio at [place] Feb 2023, having echo 04/27 [facility]: notes associated chest tightness and mild SOB-denies current symptoms in clinic or change/worsening since seeing cardiology Balance problems chronic, gait instability d/t chronic left leg numbness per pt, occasional falls-last fall 1 month ago fell off step stool when cleaning refrigerator- denies hitting head or syncope. Coronary artery disease nonobstructive per cardio 06/25/2020 note ADHD Osteoporosis Hyperlipidemia Sleep apnea "mild" cpap-compliant Surgical History (Updated 06/08/23 @ 11:03 by Faraz Page PA-C) Hx of bilateral cataract extraction History of lumbar fusion (~03/2021) L4-S1 History of partial knee replacement left S/P epidural steroid injection History of colonoscopy History of esophagogastroduodenoscopy (EGD) History of tooth extraction History of tonsillectomy History of sinus surgery History of appendectomy Family History Grandfather (Paternal) Cancer of bone Mother Heart failure Aunt Cancer Father Myocardial infarction Brother Throat cancer Other No family history of adverse response to anesthesia Social History Smoking Status: Never smoker Second Hand Exposure: No; Do You Dip or Chew Tobacco: No; Tobacco Cessation Education Requested by Patient: No Hx Alcohol Use: Yes Alcohol type: other Hx Substance Use: No Preferred Language: French Communication Ability: Effective Chip Separator Required: No Beliefs That Will Affect Care: None marital status: Current Living Situation: Spouse Other Information That Helps Us Care for You: No Feels Safe at Home: Yes Safety Concerns: Feels Safe At This Time Assistive Devices: CPAP and Glasses Physical Exam Physical Exam: Physical Exam: General: In no acute distress, stated age, well-nourished, good hygiene HEENT: Normocephalic, atraumatic, no scleral icterus, pupils around round, symmetrical, and reactive to light, moist mucus membranes, trachea midline, no thyromegaly Chest/Pulm: No respiratory distress, symmetrical chest expansion, clear breath sounds throughout Cardiac: RRR, no murmurs noted Abdomen: Negative for ascites and bruising, normoactive bowel sounds, soft, non-tender to palpation throughout Musculoskeletal: RLE currently wrapped and without signs of active bleeding, intact sensation and motor function in the BL feet Extremities: Radial, dorsalis pedis, and posterior tibial pulses are intact and symmetrical, BL LE's with SCD's in place Skin: Warm, dry, no rashes , lesions, or scars noted Neuro: Alert and oriented to person, place, month, year, and president, no focal defects, no tremors noted Psych: No acute distress, calm and cooperative during the exam Results & Data Results & Data Vital Signs (Past 12 Hours) Vital Signs Temp Pulse Resp BP Pulse Ox O2 Del Method O2 Flow Rate 06/08/23 09:45 36.4 C L 66 22 123/55 L 100 Room Air 06/08/23 09:35 62 15 131/56 L 100 Room Air 06/08/23 09:25 59 L 17 140/56 L 100 Oxymask 4 06/08/23 09:17 36.7 C 62 15 114/47 L 100 Oxymask 14 06/08/23 05:50 36.6 C 71 20 145/68 H 98 Room Air Diagnostic Findings Knee X-Ray 06/08/23 09:25 TWO VIEWS RIGHT KNEE CLINICAL HISTORY: Postoperative examination. FINDINGS: AP and crosstable lateral portable views of the right knee are ob tained. A right knee arthroplasty is in near anatomic alignment. There has been undersurface remodeling of the patella. No acute fracture is seen. There are expected postoperative changes around the knee including skin clips, a surgical drain, soft tissue edema, and subcutaneous gas. IMPRESSION: Expected postoperative changes status post right knee arthroplasty. No acute fracture is seen. ACT 112: Negative or not required by law. Electronically signed by: Christiano Vasquez M.D. 06/08/2023 9:47 AM PG Care Time/CCT Total # of Minutes Spent Total Time Spent with Patient: Total time spent is greater than 50% in coordination of care (as documented) at patient's floor/unit and/or counseling patient: [place] [address] IN/OBS CONSULT LVL 3,45M Patient Type New Medical Decision Making High Complexity Diagnoses Status post right knee replacement Z96.651 ADHD F90.9 Coronary artery disease I25.10 Sleep apnea G47.30 Depression F32.9 Chronic headaches R51.9; G89.29
[2023-06-08] MEDS: ORTHO JOINT ANESTHETIC ONE (10:42)
[2023-06-08] MEDS: SODIUM CHLORIDE 0.9% 1,000 ML IV SCH (11:04)
[2023-06-08] MEDS: SENNA 8.6 MG TAB PO SCH (19:27)
[2023-06-08] MEDS: DULoxetine HCL 30 MG CAP PO SCH (19:28)
[2023-06-08] MEDS: GABAPENTIN 400 MG CAP PO SCH (19:28)
[2023-06-08] MEDS: DOCUSATE SODIUM 100 MG CAP PO SCH (19:28)
[2023-06-08] MEDS: ASPIRIN 81 MG ECTAB PO SCH (19:29)
[2023-06-08] MEDS: ATORVASTATIN 10 MG TAB PO SCH (19:29)
[2023-06-08] MEDS: PROPRANOLOL HCL 20 MG TAB PO SCH (22:53)
[2023-06-09 06:47] LABS: Hematocrit (blood only) 30.5 % (37.0-47.0); Hemoglobin 10.3 g/dl (12.0-16.0); Mean Corpuscular Hemoglobin 29.7 pg (25.0-34.0); Mean Corpuscular Hgb Conc 33.8 g/dL (32.0-36.0); Mean Corpuscular Volume 87.9 fL (80.0-100.0); Mean Platelet Volume 10.8 fL (9.4-12.4); Platelet Count 245 K/uL (130-400); RDW Standard Deviation 41.8 fL (36.4-46.3); Red Blood Count 3.47 M/uL (4.20-5.40); White Blood Count 17.92 K/ul (4.8-10.8)
[2023-06-09 07:00] LABS: BUN Creatinine Ratio 24.4 (10-20); Calcium 9.1 mg/dl (8.6-10.3); Creatinine Clr Calc Pharmacy 65.5 ml/min; Est GFR (African American) 87.4 ml/min; Est GFR (Non-African American) 75.4 ml/min; Potassium 4.1 mmol/L (3.5-5.1)
--- NOTE | 2023-06-09 07:14 | Orthopedic Progress Note ---
Date of Service June 09, 2023 Assessment & Plan (1) Osteoarthritis of right knee: Plan: Postop day 1 PT/OT protocols. Weightbearing as tolerated. DVT prophylaxis-aspirin p.o. twice daily, SCDs, ADEEL hose Pain management as written Leukocytosis-likely secondary to preoperative steroids and or surgical stress. Patient currently asymptomatic DC planning-patient is planning for outpatient PT upon discharge. Admission and Anticipated Discharge Date Admission Date: June 08, 2023 Subjective Postop day 1 Patient sitting in her chair at the bedside. Patient was ambulating to the bathroom with a walker independently. Pain is controlled. Patient feels well. Hoping to go home today. No complaints Physical Exam Physical Exam: Dressings are clean, dry, and intact. Calves are soft nontender. Neurovascular intact. Toes are mobile. She has good dorsiflexion plantarflexion of her right foot. Hemovac drainage was 155 cc from the previous shift Results & Data Vital Signs (Past 12 Hours) Vital Signs Temp Pulse Resp BP Pulse Ox O2 Del Method 06/09/23 03:00 36.6 C 76 16 116/69 94 Room Air 06/08/23 23:03 36.5 C 75 16 105/62 95 Room Air Laboratory Results 06/09/23 Range/Units 05:54 WBC 17.92 H (4.8-10.8) K/ul RBC 3.47 L (4.20-5.40) M/uL Hgb 10.3 L (12.0-16.0) g/dl Hct 30.5 L (37.0-47.0) % MCV 87.9 (80.0-100.0) fL MCH 29.7 (25.0-34.0) pg MCHC 33.8 (32.0-36.0) g/dL RDW Std Deviation 41.8 (36.4-46.3) fL RDW Coeff of Diann 13.0 (11.5-14.5) % Plt Count 245 (130-400) K/uL MPV 10.8 (9.4-12.4) fL Sodium 141 (136-145) mmol/L Potassium 4.1 (3.5-5.1) mmol/L Chloride 110 H (98-107) mmol/L Carbon Dioxide 25 (21-32) mmol/L Anion Gap 6 (3-11) BUN 19 (6-23) mg/dl Creatinine 0.78 (0.6-1.2) mg/dl Est Cr Clr Drug Dosing 65.5 ml/min Est GFR ( Amer) 87.4 ml/min Est GFR (Non-Af Amer) 75.4 ml/min BUN/Creatinine Ratio 24.4 H (10-20) Glucose 109 H (70-99(Fasting)) mg/dl Calcium 9.1 (8.6-10.3) mg/dl Hepatitis C Ab (EIA) Pending (1) Osteoarthritis of right knee Osteoarthritis type: primary Qualified Code(s): M17.11 - Unilateral primary osteoarthritis, right knee
[2023-06-09] MEDS: oxyCODONE HCL IR 5 MG TAB (IMMEDIATE RELEASE) PO PRN (08:30)
[2023-06-09] MEDS: MULTIVITAMIN TAB PO SCH (08:32)
[2023-06-09] MEDS: CHOLECALCIFEROL 25 MCG (1000 UNITS) TAB PO SCH (08:32)
--- NOTE | 2023-06-13 13:16 | Discharge Summary ---
Date of Service June 13, 2023 Admission HPI Per Admitting Provider 73-year-old female with bilateral knee pain right greater than left. Failed conservative management right knee. Left knee has had a unicompartmental knee replacement but has had progressive pain and instability of the left knee. Patient denies headaches, sweats, fevers, chills, double vision, blurred vision, cough, sore throat, dysphagia, chest pain, sob at rest, wheezing, n/v/d/c, numbness, tingling, fatigue, urinary symptoms, mood disorders. ROS positive for irregular heartbeat, sleep apnea, shortness of breath if runs walks uphill or climbs a flight of stairs has some neck and low back pain issues. Admission Exam Per Admitting Provider Physical Exam Constitutional: WD/WN, vitals as above Respiratory: normal respiratory effort; no respiratory distress Cardiovascular: Rate/Rhythm: regular rate and regular rhythm Musculoskeletal: Right knee varus alignment 0 to 125 degrees range of motion mild effusion no instability active painful range of motion. Left knee 0 to 130 degrees range of motion ligamentous laxity to valgus stress mild varus stress moderate mild swelling healed surgical scars varus knee alignment. Skin: no rashes, warm and dry Neurologic: normal touch/pain/proprioception Psychiatric: A+Ox3, euthymic affect Principal Diagnosis Right Knee Osteoarthritis Discharge Data Allergies Allergy/AdvReac Type Severity Reaction Status Date / Time grass pollen-perennial rye, Allergy Mild "SNEEZING Verified 06/08/23 05:45 standar AND RUNNY NOSE" Consultations 06/06/23 09:37 Consult Hospitalist Routine Procedures Performed Operation Date: 06/08/23 07:00 Actual Procedures p Right Total Knee Arthroplasty(Right) - Jorge Monet MD Ordered Studies 06/08/23 05:00 US - OR guided needle placemen Routine Hospital Course (1) Osteoarthritis of right knee: Patient: RAYNA FOX Admit Date: 06/08/23 MR#: [id number] Att Phy: Jorge Monet M.D. Acct ID: [id number] Grace Phy: Francis Alejandro D.O. Date: 1950 Fam Phy: Age: 73 Location: 3E Sex: F Room/Bed: [facility] cc: ~ *NOTICE TO RECEIVING CONSTITUTION PARTY/AGENCY This information is strictly Confidential and protected under [place] law. [place] law prohibits you from making any further disclosure of this information unless further disclosure is expressly permitted by the written consent of the person to whom it pertains or is authorized by law. A general authorization for the release of medical or other information is not sufficient for this purpose. Hospital accepts no responsibility if the information is made available to any other person, INCLUDING THE PATIENT. Date of Service June 09, 2023 Assessment & Plan (1) Osteoarthritis of right knee: Plan: Postop day 1 PT/OT protocols. Weightbearing as tolerated. DVT prophylaxis-aspirin p.o. twice daily, SCDs, ADEEL hose Pain management as written Leukocytosis-likely secondary to preoperative steroids and or surgical stress. Patient currently asymptomatic DC planning-patient is planning for outpatient PT upon discharge. Admission and Anticipated Discharge Date Admission Date: June 08, 2023 Subjective Postop day 1 Patient sitting in her chair at the bedside. Patient was ambulating to the bathroom with a walker independently. Pain is controlled. Patient feels well. Hoping to go home today. No complaints Physical Exam Physical Exam: Dressings are clean, dry, and intact. Calves are soft nontender. Neurovascular intact. Toes are mobile. She has good dorsiflexion plantarflexion of her right foot. Hemovac drainage was 155 cc from the previous shift Results & Data Vital Signs (Past 12 Hours) Vital Signs Temp Pulse Resp BP Pulse Ox O2 Del Method 06/09/23 03:00 36.6 C 76 16 116/69 94 Room Air 06/08/23 23:03 36.5 C 75 16 105/62 95 Room Air Laboratory Results 06/09/23 Range/Units 05:54 WBC 17.92 H (4.8-10.8) K/ul RBC 3.47 L (4.20-5.40) M/uL Hgb 10.3 L (12.0-16.0) g/dl Hct 30.5 L (37.0-47.0) % MCV 87.9 (80.0-100.0) fL MCH 29.7 (25.0-34.0) pg MCHC 33.8 (32.0-36.0) g/dL RDW Std Deviation 41.8 (36.4-46.3) fL RDW Coeff of Diann 13.0 (11.5-14.5) % Plt Count 245 (130-400) K/uL MPV 10.8 (9.4-12.4) fL Sodium 141 (136-145) mmol/L Potassium 4.1 (3.5-5.1) mmol/L Chloride 110 H (98-107) mmol/L Carbon Dioxide 25 (21-32) mmol/L Anion Gap 6 (3-11) BUN 19 (6-23) mg/dl Creatinine 0.78 (0.6-1.2) mg/dl Est Cr Clr Drug Dosing 65.5 ml/min Est GFR ( Amer) 87.4 ml/min Est GFR (Non-Af Amer) 75.4 ml/min BUN/Creatinine Ratio 24.4 H (10-20) Glucose 109 H (70-99(Fasting)) mg/dl Calcium 9.1 (8.6-10.3) mg/dl Hepatitis C Ab (EIA) Pending (1) Osteoarthritis of right knee Osteoarthritis type: primary Qualified Code(s): M17.11 - Unilateral primary osteoarthritis, right knee Signed By: <Electronically signed by Francis Cuadra MD> 06/09/23 1119 <Electronically signed by Vish Ramos PA-C> 06/09/23 0714 Created: 06/09/23 0712 The status of this report is Signed. Draft = Not yet reviewed or approved by Medical Physician. Signed = Reviewed and approved by Medical Physician. Total Time Total Time Spent Total Time Spent (In Minutes): 5 Discharge Plan Discharge Items Patient Disposition: Home - Self-Care Reason For Visit: Right Knee Osteoarthritis Discharge Diagnosis: Right Knee Osteoarthritis Activity: Per Instructions section Weightbearing: Full weightbearing Non-emergency contact: Surgeon Call non-emergency contact if: you have any medication questions, your pain is not controlled, your wound has increased redness, your wound has increased drainage and your wound pain has increased Follow-up/Referrals: Jorge Monet MD [Surgeon] - 06/10/23 8:30 am (Follow up with Dr. Monet in 2 weeks from the day of surgery for your first post operative 06/10/23 APPOINTMENT AT [facility] TO HAVE DRAIN REMOVED.) Francis Alejandro [Primary Care Provider] - Diet: Regular Addtl Attending Provider Instructions: PLEASE COME TO THE [facility] TOMORROW, 06/10/23 AT 8:30 AM TO HAVE YOUR DRAIN REMOVED. ACTIVITY RECOMMENDATIONS: SELF CARE INSTRUCTIONS AFTER TOTAL KNEE REPLACEMENT A. You may need to continue a physical therapy program after discharge from the hospital. There are several options available to you. Your doctor will assist you in selecting the best one for you. 1. An out-patient facility 2 to 3 times a week for therapy or home therapy. 2. Continue working on all exercises taught to you in the hospital. Your goals should be to increase bending of your knee to 90 degrees and beyond and to fully straighten your knee. B. You may progress at your own pace from walking with a walker or crutches to a cane; then to no assistive devices. C. Make walking a part of your daily routine. Be up as much as comfortable with rest periods throughout the day. Rest with leg elevation is very important. Use the ice wrap frequently for the first 3-4 weeks. D. There are no restrictions on activities. You may ride in a car, shop, participate in auto body customizer and all social activities. E. Wear the long elastic stockings (ADEEL hose) 20 hours a day for 2 weeks after surgery. They can be removed several times a day for laundering and for a bath. F. You may shower, no tub baths until cleared by your doctor. SPECIAL CARE INSTRUCTIONS: VERY IMPORTANT TO READ AND REVIEW A. There are a few signs you need to watch for after you are home. Call [facility] [place] if you notice any of the followin. Increased severe knee pain. Some pain is expected especially when you exercise. 2. Increased swelling in your leg or knee; pain or swelling of the calf muscle in either lower leg. 3. Any fluid drainage from the incision. 4. Shortness of breath or chest pain. B. Please call [facility] [place] at if you have any concerns or questions about your operation or recovery. The doctor or his nurse will return your call promptly. C. You must take antibiotics before dental work, bladder, bowel or other surgery. Your doctor will provide you with a permanent care to carry describing this precaution. IMPORTANT: * REMEMBER TO TAKE ASPIRIN, 81 MG, TWICE DAILY FOR 4 WEEKS UNLESS OTHERWISE DIRECTED. THIS IS YOUR BLOOD THINNER. * CALL IF INCREASED PAIN, REDNESS, DRAINAGE OR FEVER GREATER THAT 101. * WEAR ADEEL HOSE 20 HOURS PER DAY FOR 2 WEEKS. * PHILIPPE Dressing - This is a large suction dressing covering your incision. This will help pull any excess drainage from the wound and allow your incision to heal properly. You may shower with this if you can keep the unit outside of the shower. If any bleeding or leakage is noted please call your doctor's office. This will remain on your incision for 7 days and then should be removed. This can be done yourself or by the home nursing staff if applicable. The entire unit is disposable once removed. Once removed, keep incision clean and dry. If redness or drainage is noted, please call your surgeon. . FOLLOW UP VISIT: If appointment is not already scheduled: Please call [facility] to make a follow-up appointment for 2 weeks after your surgery at . Stand-Alone Forms: [employer] Smoking Cessation Medications and DC Order Prescriptions: New aspirin 81 mg Tablet,Delayed Release (Dr/Ec) 81 mg PO BID 30 Days Qty: 60 0RF acetaminophen [Tylenol Extra Strength] 500 mg Tablet 1,000 mg PO Q8 14 Days Qty: 84 0RF oxycodone 5 mg tablet 5 mg PO Q4H MDD 6 PRN (Reason: pain) Qty: 30 0RF cefadroxil 500 mg capsule 500 mg PO BID Qty: 14 0RF Continued calcium carbonate-vitamin D3 500 mg(1,250mg) -400 unit tablet 1 tab PO BID duloxetine 30 mg capsule,delayed release(DR/EC) 30 mg PO HS methylphenidate HCl 54 mg tablet extended release 24hr 54 mg PO QAM atorvastatin 10 mg tablet 10 mg PO HS cholecalciferol (vitamin D3) 1,000 unit capsule 1,000 units PO QAM vitamin B complex [Super B-50 Complex] capsule 1 cap PO QAM propranolol 60 mg capsule,extended release 24 hr 40 mg PO BID Qty: 30 gabapentin 100 mg capsule 400 mg PO BID Patient Comments: 100 mg PO Take 2 to 3 times daily PRN; Rx Instructions: 100 mg PO Take 2 to 3 times daily PRN; alendronate [Fosamax] 70 mg Tablet 70 mg PO WK Patient Comments: on sundays multivitamin Tablet 1 tab PO QAM Discharge Orders: Discharge Order (Routine); Ordered 06/09/23 Ordered By: Vish Lee/Other Patient Handouts: DVT Post Op Prevention Admission Data Admit Date/Time: 06/08/23 10:13 Attending Provider: Jorge Monet Admit Provider: Jorge Monet Primary Care Provider: Francis Alejandro Other Providers: Reji Parker Other Interventions: Discharge Summary Assessment (RN) Last Done: 06/09/23 11:10
== END 2023-06-09 12:09 | disposition home or self-care (01) ==
LOC: ASU 05:07 → 3E 05:07